=== PATIENT | female | born 1960 | race Caucasian/White ===

== ENCOUNTER 2022-03-08 06:55 | Inpatient (IN) | payer OTHER ==
[~2022-03-08] VITALS: Ht 149.9 cm; Wt 89.4 kg
--- NOTE | 2022-03-08 07:00 | NUR ---
Pt to bed 7 for evaluation.
--- NOTE | 2022-03-08 07:18 | NUR ---
at bedside with patient
--- NOTE | 2022-03-08 07:22 | NUR ---
Covid swab done and sent to lab.
--- NOTE | 2022-03-08 07:22 | NUR ---
Pt brougth in by pedro from dialysis center with complaint of low bp. patient is aox4. pain level is 0/10. pt is complaining of sob pt lung are clear and has 02 sat of 99 room air. pt glucose reading is 144.
--- NOTE | 2022-03-08 07:25 | NUR ---
Chest X-Ray being done at bedside.
[2022-03-08] MEDS ORDERED: ONDANSETRON HCL 4 MG/2 ML VIAL IVP ONE (07:30)
[2022-03-08 07:32] VITALS: BP_SYST 113
--- NOTE | 2022-03-08 07:42 | NUR ---
EKG performed at by Chacorta THOMPSON. Physician given copy of EKG for review.
[2022-03-08] MEDS ORDERED: ERGO800011 PO (07:47)
[2022-03-08] MEDS ORDERED: FOLI-43 PO (07:47)
[2022-03-08] MEDS ORDERED: ALPR0.25 PO (07:52)
[2022-03-08] MEDS ORDERED: NEPH PO (07:52)
[2022-03-08] MEDS ORDERED: METO-290 PO (07:52)
[2022-03-08] MEDS ORDERED: REN800 PO (07:52)
--- NOTE | 2022-03-08 07:52 | NUR ---
Medication reconciliation completed with information provided by patient. Any prior medication reconciliation on file was reviewed and corrected.
--- NOTE | 2022-03-08 08:10 | NUR ---
# 22 gauge angiocath placed to Right AC. Use of asceptic technique. Opsite placed over site. Blood return noted. Blood for lab drawn from site. Flushed with 10 cc of normal saline. No evidence of infiltration noted. Patient tolerated well.
--- NOTE | 2022-03-08 08:12 | NUR ---
# 16 FR Padilla catheter with use of sterile technique. No return noted. Bedside drainage bag placed below level of bladder. Pt tolerated procedure well.
--- NOTE | 2022-03-08 10:00 | NUR ---
Dr. Tai at bedside placing 20gIV using aseptic technique using guided ultrasound. Blood drawn.
[2022-03-08] MEDS ORDERED: VANCOMYCIN HCL 1,000 MG in NS 250 ML IV ONE (10:15)
[2022-03-08] MEDS ORDERED: PIPERACILLIN/TAZO 3.375 GM in NS 50 ML IV ONE (10:15)
[2022-03-08] MEDS ORDERED: VANCOMYCIN HCL 1000 MG/VIAL IV ONE (10:16)
[2022-03-08] MEDS ORDERED: PIPERACILLIN/TAZOBACTAM 3.375 GM/VIAL (ZOSYN) IV ONE (10:16)
--- NOTE | 2022-03-08 11:02 | NUR ---
Hemodialysis Patient Care Specialist is Cherise Holly
--- NOTE | 2022-03-08 11:22 | NUR ---
Admit bed requested Patient will be admitted to care of Dr. Valladares. Admitted to Tele unit. Diagnosis Sepsis & ESRD Inpatient Yes Observation No Orientation concerns or request close to nursing station No Covid Status Negative On vent or bipap No Isolation requirements No Needs a sitter No From Home Yes Requires Dialysis Yes. MWF Med Rec Completed Yes
[2022-03-08 11:26] LABS: ALANINE AMINOTRANSFERASE 54 U/L (12-78); ALBUMIN 1.8 g/dL (3.4-4.8); ASPARTATE AMINOTRANSFERASE 78 U/L (10-37); CREATININE 6.54 mg/dL (0.55-1.30); GLUCOSE 153 mg/dL (70-99); PHOSPHORUS 4.5 mg/dL (2.7-4.5); TOTAL BILIRUBIN 0.7 mg/dL (0.0-1.0); UREA NITROGEN, BLOOD 50 mg/dL (8-21)
--- NOTE | 2022-03-08 11:27 | NUR ---
Dr. Valladares called for admitting orders. Orders have been placed.
[2022-03-08 11:34] LABS: GFR AFRICAN AMERICAN 8 mL/min (>90)
[2022-03-08 11:39] LABS: ANION GAP 12 (5-15); CHLORIDE 109 mmol/L (98-107); POTASSIUM 4.5 mmol/L (3.5-5.1); SODIUM SERUM 144 mmol/L (136-145)
[2022-03-08] MEDS ORDERED: PIPERACILLIN/TAZO 3.375/DEX-IS 50 ML IV SCH (12:00)
[2022-03-08 12:40] VITALS: BP_SYST 92
--- NOTE | 2022-03-08 12:40 | NUR ---
Admission Note Received patient from ER with diagnosis of sepsis/ESRD. Initial Plan of Care discussed-patient verbalized understanding. Family at bedside. Oriented to room, call light, pain management and safety.
--- NOTE | 2022-03-08 12:44 | NUR ---
Patient will be admitted to care of DONNA Cooper. Admitted to unit. Will go to room . Belongings list completed. Complete and up to date summary report printed. SBAR report to be given at bedside with opportunity for questions.
--- NOTE | 2022-03-08 15:28 | NUR ---
Paged: Called Dr Valladares's exchange for pt c/o itching and spoke with Madeline.
--- NOTE | 2022-03-08 15:56 | NUR ---
ATTENDING MD DR PATEL WAS CALLED, RE: MED RELIEF FOR ITCHING. SPOKE TO RUBY.
--- NOTE | 2022-03-08 16:10 | NUR ---
New Order: Spoke with Dr Valladares regarding patient c/o itching.With orders give Benadryl 50mg ivp q 6hours for itching.
[2022-03-08] MEDS: PIPERACILLIN/TAZO 2.25G/DEX-IS 50 ML IV SCH ×2 (16:54→22:42)
[2022-03-08] MEDS: DIPHENHYDRAMINE INJ 50 MG/ML VIAL IVP PRN ×2 (17:03→22:41)
--- NOTE | 2022-03-08 17:45 | NUR ---
Note: Spoke with family, updates given.
--- NOTE | 2022-03-08 19:10 | NUR ---
OPENING NOTES: RECEIVED REPORT FROM OUTGOING NURSE. PT LAYING IN BED, FAMILY-CHILDREN AT BED SIDE. C/O ITCHING. FAMILY WORRIED MD HAS NOT SEEN THEIR MUM SINCE TODAY. VITALS STABLE, EXCEPT FOR ELEVATED TEMP. MD KEVIN MD PUT IN ORDER FOR 650MG TYLENOL FOR TEMP>100.4, TO FOR PICC LINE. PT IS A HARD STICK.
[2022-03-08 19:14] LABS: HEMOGLOBIN 7.1 g/dL (12.0-16.0)
--- NOTE | 2022-03-08 19:14 | NUR ---
Closing Notes Patient is laying in bed with eyes closed. Family is at bedside. No distress noted. Provided ice chips. Safety and fall precautions in place. Call light within reach. All needs met. Will hand off care to night cleaner RN.
[2022-03-08 20:37] LABS: HEMATOCRIT 22.4 % (36-48); MEAN CORPUSCULAR HEMOGLOBIN 30 pg (27-31); MEAN CORPUSCULAR HGB CONC 32 % (32-36); MEAN CORPUSCULAR VOLUME 94 fL (79.0-98.0); PLATELET COUNT (AUTO) 82 K/uL (130-430); RED BLOOD CELL COUNT(AUTO) 2.38 MIL/uL (4.2-6.2); RED CELL DISTRIBUTION WIDTH 20.2 % (9.0-15.0); WHITE BLOOD COUNT (AUTO) 8.4 K/uL (4.8-10.8)
[2022-03-08 21:22] LABS: INR 1.3 (0.8-1.2); PROTHROMBIN TIME 13.3 SECS (9.5-12.5)
[2022-03-08 21:46] LABS: BAND % (MANUAL) 5 % (0-6); BASOPHILS % (MANUAL) 0 % (0-2); EOSINOPHILS % (MANUAL) 40 % (0-7); LYMPHOCYTES % (MANUAL) 12 % (20-46); MONOCYTES % (MANUAL) 7 % (0-11)
[2022-03-08] MEDS: ACETAMINOPHEN 325 MG TABLET PO PRN (22:40)
[2022-03-09] VITALS (7 sets, daily range): BP systolic 110–126
--- NOTE | 2022-03-09 05:38 | NUR ---
BLOOD DRAW: ATTEMPTS TO DRAW BLOOD WAS NOT SUCCESSFUL. PT HAS SIGNED CONSENT TO START PICC LINE IN CHART.
[2022-03-09] MEDS: PIPERACILLIN/TAZO 2.25G/DEX-IS 50 ML IV SCH ×2 (06:49→13:33)
--- NOTE | 2022-03-09 07:39 | NUR ---
end of shift report to incoming nurse. pt asleep in bed. no signs of distress or discomfort. IV running with zosyn.
--- NOTE | 2022-03-09 11:57 | NUR ---
NOTIFIED ON CONSULT ORDERING PHY: REASON FOR CONSULT: SEPSIS DIALED: [phone] SPOKE TO: OLIVIA
[2022-03-09] MEDS ORDERED: HYDROCORTISONE 2.5%, 30 GM TOPICAL CREAM TP PRN (17:30)
[2022-03-09] MEDS ORDERED: *CUBICIN 6 MG/KG Q48H/PHARMACY XX PRN (17:30)
[2022-03-09] MEDS: CEFEPIME 1 GM in D5W 50 ML IV SCH (18:50)
--- NOTE | 2022-03-09 18:59 | NUR ---
station worker stated patient is not candidate for picc line and needs central line, notified primary MD and order for central line consult with dr Bhatti and to D/C picc line order
[2022-03-09] MEDS: DAPTOmycin 600 MG in NS 50 ML IV SCH (21:59)
[2022-03-09] MEDS: MIDODRINE HCL 5 MG TABLET (PROAMATINE) PO SCH (22:00)
[2022-03-09] MEDS: HYDROCORTISONE SOD SUCC 100 MG/2 ML VIAL IVP SCH (22:01)
[2022-03-09] MEDS: EMOLLIENT COMBINATION NO.73 78 GM CREAM..G. TP SCH (22:02)
[2022-03-10 00:26] VITALS: BP_SYST 135
--- NOTE | 2022-03-10 04:21 | NUR ---
CONSULTATION PAGED REASON FOR CONSULTATION: Central Line Placement WAS CONSULT CALLED? Y PERSON WHO WAS NOTIFIED: Dania CONSULTING PHYSICIAN: Dr. Bhatti REQUESTING PHYSICIAN:Dr. Gore
[2022-03-10] MEDS: HYDROCORTISONE SOD SUCC 100 MG/2 ML VIAL IVP SCH ×3 (05:55→23:36)
[2022-03-10 06:38] LABS: BASOPHILS # (AUTO) 0.1 K/uL (0.0-0.2); BASOPHILS % (AUTO) 1.1 % (0.0-2.0); EOSINOPHILS % (AUTO) 35.2 % (0.0-4.0); LYMPHOCYTES # (AUTO) 0.8 K/uL (1.0-5.5); LYMPHOCYTES % (AUTO) 13.8 % (20.5-51.5); MEAN CORPUSCULAR HEMOGLOBIN 30 pg (27-31); MEAN CORPUSCULAR HGB CONC 32 % (32-36); MEAN CORPUSCULAR VOLUME 94 fL (79.0-98.0); MONOCYTES # (AUTO) 0.3 K/uL (0.0-1.0); MONOCYTES % (AUTO) 5.6 % (1.7-9.3); NEUTROPHILS # (AUTO) 2.5 K/uL (1.8-7.7); NEUTROPHILS % (AUTO) 44.3 % (40.0-70.0); PLATELET COUNT (AUTO) 72 K/uL (130-430); RED BLOOD CELL COUNT(AUTO) 2.11 MIL/uL (4.2-6.2); RED CELL DISTRIBUTION WIDTH 20.1 % (9.0-15.0); WHITE BLOOD COUNT (AUTO) 5.6 K/uL (4.8-10.8)
[2022-03-10 08:00] VITALS: BP_SYST 103
[2022-03-10 08:50] LABS: ALBUMIN 1.6 g/dL (3.4-4.8); TOTAL BILIRUBIN 0.9 mg/dL (0.0-1.0); VANCOMYCIN,RANDOM 30.1 ug/mL
[2022-03-10 08:52] LABS: HEMATOCRIT 19.8 % (36-48); HEMOGLOBIN 6.4 g/dL (12.0-16.0)
[2022-03-10 09:13] LABS: CREATININE 8.74 mg/dL (0.55-1.30); POTASSIUM 5.9 mmol/L (3.5-5.1)
[2022-03-10] MEDS ORDERED: SODIUM POLYSTYRENE SULFONATE 15 GM/60 ML UDBTL PO ONE (09:30)
[2022-03-10] MEDS: MIDODRINE HCL 5 MG TABLET (PROAMATINE) PO SCH ×3 (09:34→23:36)
[2022-03-10] MEDS: EMOLLIENT COMBINATION NO.73 78 GM CREAM..G. TP SCH ×2 (09:34→23:28)
[2022-03-10] MEDS ORDERED: HEPARIN SODIUM,PORCINE 5,000 UNITS/ML VIAL MC ONE (11:00)
[2022-03-10] MEDS: MUPIROCIN 2% TOPICAL OINTMENT 22 GM NS SCH ×2 (11:35→23:27)
[2022-03-10 12:22] VITALS: BP_SYST 130
--- NOTE | 2022-03-10 13:13 | NUR ---
Dietitian Recommendations * Renal diet w/ Nepro BID. * Supplement provides an additional 840 kcals/day and 38 g protein/day. Please refer to Nutrition Assessment for details. Signed: 03/10/22 at 1314 by Sada CARRILLO <Co-Signature Required> Co-Signed: 03/10/22 at [address] Addendum: 03/10/22 at 1315 by Sada CARRILLO Amended: Links added.
[2022-03-10] MEDS: DIPHENHYDRAMINE INJ 50 MG/ML VIAL IVP PRN (15:22)
[2022-03-10 16:30] VITALS: BP_SYST 139
[2022-03-10] MEDS ORDERED: EPOETIN ALFA 3,000 UNITS/ML VIAL SUBCUT SCH (17:00)
[2022-03-10] MEDS ORDERED: HEPARIN SODIUM,PORCINE 5,000 UNITS/ML VIAL IVP ONE (18:15)
[2022-03-10 19:00] VITALS: BP_SYST 140
[2022-03-10 20:00] VITALS: BP_SYST 140
[2022-03-10] MEDS: CEFEPIME 1 GM in D5W 50 ML IV SCH (23:26)
[2022-03-11] VITALS (16 sets, daily range): BP systolic 131–188
[2022-03-11 07:26] LABS: ALBUMIN 1.7 g/dL (3.4-4.8); CREATININE 6.97 mg/dL (0.55-1.30); POTASSIUM 4.8 mmol/L (3.5-5.1); TOTAL BILIRUBIN 0.7 mg/dL (0.0-1.0)
[2022-03-11 08:21] LABS: CALCIUM 6.6 mg/dL (8.4-11.0)
[2022-03-11 08:23] LABS: EOSINOPHILS # (AUTO) 0.7 K/uL (0.0-0.4); EOSINOPHILS % (AUTO) 18.8 % (0.0-4.0); LYMPHOCYTES # (AUTO) 0.6 K/uL (1.0-5.5); LYMPHOCYTES % (AUTO) 14.3 % (20.5-51.5); MEAN CORPUSCULAR HEMOGLOBIN 30 pg (27-31); MEAN CORPUSCULAR HGB CONC 32 % (32-36); MEAN CORPUSCULAR VOLUME 93 fL (79.0-98.0); MONOCYTES # (AUTO) 0.4 K/uL (0.0-1.0); MONOCYTES % (AUTO) 10.1 % (1.7-9.3); RED CELL DISTRIBUTION WIDTH 19.1 % (9.0-15.0)
[2022-03-11] MEDS: HYDROCORTISONE SOD SUCC 100 MG/2 ML VIAL IVP SCH ×3 (08:40→21:58)
[2022-03-11] MEDS: EMOLLIENT COMBINATION NO.73 78 GM CREAM..G. TP SCH ×2 (08:41→22:00)
[2022-03-11] MEDS: MIDODRINE HCL 5 MG TABLET (PROAMATINE) PO SCH ×3 (08:41→21:00)
[2022-03-11] MEDS: MUPIROCIN 2% TOPICAL OINTMENT 22 GM NS SCH ×2 (08:42→21:59)
--- NOTE | 2022-03-11 09:30 | NUR ---
SPOKE WITH DR VAIL AND HE STATED PATIENT LEFT ARM SHUNT WILL BE ASSESSED VIA ULTRASOUND TO DETERMINE IF IT ABLE TO BE USED AND THE [place] CATH CAN BE REMOVED SINCE DR POWER VOICED THAT SOURCE OF INFECTION MIGHT BE THE CONCETTA CATHER. DIALYSIS SCHEDULED FOR TOMORROW. DR VAIL AT BEDSIDE AND SPOKE WITH FAMILY.
[2022-03-11] MEDS ORDERED: ONDANSETRON HCL 4 MG/2 ML VIAL IVP PRN (10:00)
--- NOTE | 2022-03-11 10:31 | NUR ---
CONSULTATION PAGED/CALLED Reason for Consultation: [] HYPOTENSION Person Who was Notified: [] VAMSI Consulting Physician: [] DR PEÑA Fuel Yard Operator Specialty: [] PULMO Ordering Physician: [] DR PATEL
[2022-03-11 10:32] LABS: RED BLOOD CELL COUNT(AUTO) 1.85 MIL/uL (4.2-6.2)
[2022-03-11 10:34] LABS: HEMATOCRIT 17.2 % (36-48); HEMOGLOBIN 5.6 g/dL (12.0-16.0); PLATELET COUNT (AUTO) 49 K/uL (130-430)
--- NOTE | 2022-03-11 10:45 | NUR ---
received report from [facility] DONNA Moore using SBAR method, patient is awake lying on bed, no signs of acute distress noted at this time. patient vital signs heart rate 87, respiratory rate 19, blood pressure 157/97, temperature 98.3, bed locked at lowest position, fall and safety precaution in place, will continue to monitor.
--- NOTE | 2022-03-11 10:48 | NUR ---
CONSULTATION PAGED REASON FOR CONSULTATION:GI BLEED WAS CONSULT CALED?Y PERSON WHO WAS NOTIFIED:ISMAEL CONSULTING PHYSICIAN:PHYLLIS HURST ([employer] PSYCHOLOGIST) ANALYTICS MANAGER SPECIALTY:GI ANALYTICS MANAGER PHONE NUMBER:[phone] REQUESTING PHYSICIAN:DANIAL LAIRD
--- NOTE | 2022-03-11 10:54 | NUR ---
CONSULTATION PAGED SON FOR CONSULTATION:LOW H/H 5.5/17.5 PLATELET 49 WAS CONSULT CALED?Y PERSON WHO WAS NOTIFIED:JAN CONSULTING PHYSICIAN:GURWINDER BHATT SET STAFF FITTER SPECIALTY:INCOLOFY/HEMATOLOGY SET STAFF FITTER PHONE NUMBER:[phone] REQUESTING PHYSICIAN:DANIAL LAIRD
--- NOTE | 2022-03-11 11:00 | NUR ---
CONSULTATION PAGED/CALLED Reason for Consultation: [] ADRENAL INSUFFICIENCY Person Who was Notified: [] DR ALVAREZ GOMEZ SAYED Consulting Physician: [] DR ALVAREZ GOMEZ SAYED Collection Systems Administrator Specialty: [] ENDOCRINE Ordering Physician: [] DR PATEL
--- NOTE | 2022-03-11 11:10 | NUR ---
CONSULTATION PAGED/CALLED Reason for Consultation: [] ANEMIA Person Who was Notified: [] KIKI Consulting Physician: [] DR NICHOLE Forensic Science Examiner Specialty: [] GI Ordering Physician: [] DR PATEL
[2022-03-11] MEDS ORDERED: PANTOPRAZOLE SODIUM 40 MG/VIAL (PROTONIX) IVP ONE (11:15)
--- NOTE | 2022-03-11 11:45 | NUR ---
PATIENT TRANSFERRED TO ICU, GAVE REPORT TO REINA THE RN IN ICU AT BEDSIDE, TRANSFERRED IN BED, 1 UNIT PRBC ORDERED AND BLOOD BANK FORM AND TAKEN TO LAB ALREADY BUT ENDORSED ADMINISTRATION OF PRBC BECAUSE IT IS NOT READY YET, FAMILY AT BEDSIDE AND TRANSFERRED WITH PATIENT TO THE ICU, ALL BELONGINGS SENT WITH THE PATIENT, PATIENT TOLERATED WELL AND VOICED UNDERSTANDING OF MEDICAL REASONING FOR TRANSFER.
[2022-03-11 11:56] LABS: HEMATOCRIT 18.1 % (36-48); HEMOGLOBIN 5.8 g/dL (12.0-16.0)
[2022-03-11 12:13] LABS: INR 1.2 (0.8-1.2); PROTHROMBIN TIME 12.7 SECS (9.5-12.5)
[2022-03-11 12:16] LABS: TOTAL IRON BIND. CAPACITY 98 ug/dL (250-450)
--- NOTE | 2022-03-11 13:17 | NUR ---
patient daughter and is at the bedside, answered questions and concerns.
--- NOTE | 2022-03-11 13:57 | NUR ---
RN NOTES DR. LANGFORD CALLED FOR CONSULT. RE: HIGH BP
[2022-03-11] MEDS: hydrALAZINE HCL 20 MG/ML VIAL IVP PRN ×2 (14:47→23:10)
[2022-03-11 15:28] LABS: BASOPHILS % (AUTO) 0.2 % (0.0-2.0); NEUTROPHILS # (AUTO) 2.3 K/uL (1.8-7.7); NEUTROPHILS % (AUTO) 56.6 % (40.0-70.0)
--- NOTE | 2022-03-11 17:00 | NUR ---
Dr. Arboleda is at the bedside assessing the patient, talked to the family.
--- NOTE | 2022-03-11 17:22 | NUR ---
bedside care rendered, change bed linen.do oral and perineal care.
[2022-03-11] MEDS: CEFEPIME 1 GM in D5W 50 ML IV SCH (18:02)
[2022-03-11] MEDS ORDERED: FOLIC ACID 1 MG TABLET PO ONE (18:45)
--- NOTE | 2022-03-11 19:15 | NUR ---
Opening notes Received report from endorsing morning shift RN for continuity of care. Patient is lying in bed alert and oriented in no signs of distress. Patient's vital signs blood pressure 173/74, heart rate 94, respirations 23, and SPO2 97% in room air. Padilla catheter is in place draining to gravity. Bed is locked and in lowest position, fall and safety precautions is in place.
[2022-03-11 20:34] LABS: HEMATOCRIT 17.4 % (36-48); HEMOGLOBIN 5.6 g/dL (12.0-16.0)
--- NOTE | 2022-03-11 20:54 | NUR ---
DR. JORGE LEWIS PAGED AT THIS TIME REGARDING CRITICAL RESULTS. SPOKE WITH CIPRIANO AT THE EXCHANGE.
--- NOTE | 2022-03-11 21:26 | NUR ---
DR. JOÃO LEWIS PAGED AT THIS TIME REGARDING CRITICAL LABS. SPOKE WITH IVAN AT THE EXCHANGE.
--- NOTE | 2022-03-11 21:32 | NUR ---
Received a called back from Dr. Hsu regarding critical value; Hgb 5.6 and Hct 7.4 .Gave verbal report. New order given; give 2 units of blood. Blood consent is in the chart. Type and cross is done.
[2022-03-11] MEDS: PANTOPRAZOLE SODIUM 40 MG/VIAL (PROTONIX) IVP SCH (21:58)
[2022-03-11] MEDS: DAPTOmycin 600 MG in NS 50 ML IV SCH (21:59)
[2022-03-11] MEDS: DIPHENHYDRAMINE INJ 50 MG/ML VIAL IVP PRN (23:09)
[2022-03-12] VITALS (25 sets, daily range): BP systolic 138–204
--- NOTE | 2022-03-12 03:40 | NUR ---
Blood transfusion First unit of blood transfusion done, started at 0047. No reaction throughout the blood transfusion. Type and cross is done. Blood consent is done and in the chart.
[2022-03-12] MEDS: HYDROCORTISONE SOD SUCC 100 MG/2 ML VIAL IVP SCH ×3 (05:59→21:17)
[2022-03-12] MEDS: hydrALAZINE HCL 20 MG/ML VIAL IVP PRN (06:03)
[2022-03-12 06:43] LABS: BASOPHILS # (AUTO) 0.1 K/uL (0.0-0.2); BASOPHILS % (AUTO) 2.4 % (0.0-2.0); EOSINOPHILS # (AUTO) 0.3 K/uL (0.0-0.4); EOSINOPHILS % (AUTO) 9.7 % (0.0-4.0); HEMATOCRIT 22.2 % (36-48); HEMOGLOBIN 7.2 g/dL (12.0-16.0); LYMPHOCYTES # (AUTO) 0.6 K/uL (1.0-5.5); LYMPHOCYTES % (AUTO) 18.4 % (20.5-51.5); MEAN CORPUSCULAR HEMOGLOBIN 30 pg (27-31); MEAN CORPUSCULAR HGB CONC 33 % (32-36); MEAN CORPUSCULAR VOLUME 92 fL (79.0-98.0); MONOCYTES # (AUTO) 0.3 K/uL (0.0-1.0); MONOCYTES % (AUTO) 10.4 % (1.7-9.3); NEUTROPHILS # (AUTO) 1.9 K/uL (1.8-7.7); NEUTROPHILS % (AUTO) 59.1 % (40.0-70.0); PLATELET COUNT (AUTO) 50 K/uL (130-430); RED BLOOD CELL COUNT(AUTO) 2.42 MIL/uL (4.2-6.2); WHITE BLOOD COUNT (AUTO) 3.2 K/uL (4.8-10.8)
[2022-03-12 07:06] LABS: FOLATE (FOLIC ACID) >20.0 ng/mL (>3.0)
--- NOTE | 2022-03-12 07:15 | NUR ---
received report from endorsing cemetery keeper RN for continuity of care, patient is awake lying on bed, blood transfusion is infusing , checked patient vital heart rate 107, respiratory rate 20, oxygen saturation 97, blood pressure 184/87 and temperature 97.3. blue catheter in place draining to gravity 50 ml, yellow urine in color, bed locked at lowest position, fall and safety precaution in place, will continue to monitor.
--- NOTE | 2022-03-12 07:40 | NUR ---
Dr. Marie is assessing the patient, patient family is at the bedside
[2022-03-12] MEDS: ACETAMINOPHEN 325 MG TABLET PO PRN (07:48)
[2022-03-12 07:49] LABS: POTASSIUM 4.9 mmol/L (3.5-5.1); TOTAL BILIRUBIN 0.7 mg/dL (0.0-1.0)
[2022-03-12] MEDS ORDERED: IPRATROPIUM/ALBUTEROL SULFATE 3 ML AMPUL.NEB (DUONEB) INH PRN ×2 (08:00→13:00)
[2022-03-12 08:06] LABS: INR 1.2 (0.8-1.2); PROTHROMBIN TIME 12.8 SECS (9.5-12.5)
[2022-03-12 08:23] LABS: ERYTHROCYTE SEDIMENTATION RATE 8 MM/HR (0-20)
[2022-03-12 08:52] LABS: CALCIUM 6.8 mg/dL (8.4-11.0)
[2022-03-12 08:54] LABS: CREATININE 8.01 mg/dL (0.55-1.30)
[2022-03-12] MEDS: calcitrioL 0.25 MCG CAPSULE PO SCH (09:59)
[2022-03-12] MEDS: FOLIC ACID 1 MG TABLET PO SCH (09:59)
[2022-03-12] MEDS ORDERED: METOPROLOL TARTRATE 25 MG TABLET PO ONE (10:00)
[2022-03-12] MEDS: PANTOPRAZOLE SODIUM 40 MG/VIAL (PROTONIX) IVP SCH ×2 (10:00→20:36)
[2022-03-12] MEDS: EMOLLIENT COMBINATION NO.73 78 GM CREAM..G. TP SCH ×2 (13:17→20:40)
[2022-03-12] MEDS: MUPIROCIN 2% TOPICAL OINTMENT 22 GM NS SCH ×2 (13:17→21:00)
[2022-03-12] MEDS: CEFEPIME 1 GM in D5W 50 ML IV SCH (17:40)
[2022-03-12] MEDS: EPOETIN ALFA-EPBX 10,000 UNITS/ML VIAL SUBCUT SCH (17:41)
--- NOTE | 2022-03-12 19:15 | NUR ---
Opening notes Received report from endorsing morning shift RN Isabel for continuity of care. Patient is lying in bed in no signs of distress with family member at the bedside. Patient's vital signs blood pressure 182/68, heart rate 96, respirations 28, SPO2 95% on room air. Patient is going to be NPO at midnight for abdominal ultrasound in the morning per morning RN. Padilla catheter is in place draining to gravity. Bed is locked and in lowest position, fall and safety precautions is in place.
[2022-03-12 19:17] LABS: HEMATOCRIT 26.3 % (36-48); HEMOGLOBIN 8.8 g/dL (12.0-16.0)
[2022-03-12] MEDS: METOPROLOL TARTRATE 25 MG TABLET PO SCH (20:37)
[2022-03-12] MEDS: INSULIN LISPRO SLIDING SCALE 100 UNITS/ML VIAL (humaLOG) SUBCUT PRN (21:15)
[2022-03-13] VITALS (19 sets, daily range): BP systolic 138–188
[2022-03-13] MEDS: HYDROCORTISONE SOD SUCC 100 MG/2 ML VIAL IVP SCH (06:10)
[2022-03-13] MEDS: INSULIN LISPRO SLIDING SCALE 100 UNITS/ML VIAL (humaLOG) SUBCUT PRN ×3 (06:48→17:26)
[2022-03-13 07:03] LABS: HEMATOCRIT 23.2 % (36-48); HEMOGLOBIN 7.8 g/dL (12.0-16.0); MEAN CORPUSCULAR HEMOGLOBIN 30 pg (27-31); MEAN CORPUSCULAR HGB CONC 34 % (32-36); MEAN CORPUSCULAR VOLUME 88 fL (79.0-98.0); RED BLOOD CELL COUNT(AUTO) 2.62 MIL/uL (4.2-6.2); RED CELL DISTRIBUTION WIDTH 17.8 % (9.0-15.0); WHITE BLOOD COUNT (AUTO) 3.1 K/uL (4.8-10.8)
[2022-03-13 07:15] LABS: ALBUMIN 2.1 g/dL (3.4-4.8); CALCIUM 7.4 mg/dL (8.4-11.0); CREATININE 6.01 mg/dL (0.55-1.30); POTASSIUM 4.1 mmol/L (3.5-5.1); TOTAL BILIRUBIN 0.8 mg/dL (0.0-1.0)
[2022-03-13] MEDS: hydrALAZINE HCL 20 MG/ML VIAL IVP PRN ×2 (07:29→15:33)
--- NOTE | 2022-03-13 07:34 | NUR ---
Initial Bedside shift report received from night RN for continuity of care.
[2022-03-13 08:06] LABS: PLATELET COUNT (AUTO) 34 K/uL (130-430)
[2022-03-13] MEDS: FOLIC ACID 1 MG TABLET PO SCH (09:17)
[2022-03-13] MEDS: PANTOPRAZOLE SODIUM 40 MG/VIAL (PROTONIX) IVP SCH ×2 (09:17→21:06)
[2022-03-13] MEDS: calcitrioL 0.25 MCG CAPSULE PO SCH (09:17)
[2022-03-13] MEDS: METOPROLOL TARTRATE 25 MG TABLET PO SCH (09:18)
[2022-03-13] MEDS: MUPIROCIN 2% TOPICAL OINTMENT 22 GM NS SCH ×2 (09:21→21:07)
[2022-03-13] MEDS: EMOLLIENT COMBINATION NO.73 78 GM CREAM..G. TP SCH ×2 (09:21→21:08)
[2022-03-13 10:56] LABS: BAND % (MANUAL) 3 % (0-6); BASOPHILS % (MANUAL) 0 % (0-2); EOSINOPHILS % (MANUAL) 2 % (0-7); LYMPHOCYTES % (MANUAL) 20 % (20-46); MONOCYTES % (MANUAL) 5 % (0-11)
[2022-03-13] MEDS: methylPREDNISolone SOD SUCC/PF 62.5 MG/ML VIAL IVP SCH ×2 (13:10→17:32)
--- NOTE | 2022-03-13 14:15 | NUR ---
Dr. Curiel rounded and orders left.
[2022-03-13] MEDS ORDERED: INSULIN GLARGINE 100 UNITS/ML 10 ML VIAL SUBCUT ONE (15:00)
--- NOTE | 2022-03-13 16:50 | NUR ---
Dr. Bhatti rounded and said he may take the patient to surgery on tuesday and would make up his mind on the procedure then. No orders left. He spoke to the patient and family at bedside about options.
[2022-03-13] MEDS: CEFEPIME 1 GM in D5W 50 ML IV SCH (17:23)
--- NOTE | 2022-03-13 18:15 | NUR ---
Transfer Pt transferred to [facility] rm 120A via bed. Pt A&O x3, VSs are WNR, afebrile; BP 178/87; No s&s of distress noted while transferring. Pt stated "no pain"
[2022-03-13] MEDS: DAPTOmycin 600 MG in NS 50 ML IV SCH (18:42)
--- NOTE | 2022-03-13 19:21 | NUR ---
Endorsement End of shift report given to Sadie THOMPSON, MST, for continuity of care
[2022-03-13 20:31] LABS: HEMATOCRIT 25.1 % (36-48); HEMOGLOBIN 8.3 g/dL (12.0-16.0)
--- NOTE | 2022-03-13 20:43 | NUR ---
1999: BLOOD DRAWN FROM LT IJ, CALLED WICK AND BASE ASSEMBLER TO TRICOT KNITTING MACHINE OPERATOR SPECIMEN. BP ELEVATED PREVIOUS NURSE CALLED . DR PARKINSON CALLED BACK AND ORDERED [place] 25 MG BID. CHARGE NURSE PLACED THE ORDER. WILL GIVE TO PT ONCE THE ORDER CLEARED BY THE PHARMACIST. Addendum: 03/13/22 at 2137 by Sixty lawn sprinkler servicer 2134: GENERALIZED PEELING OF SKIN, DENIES PAIN. TRIPLE LUMEN IJ ALL PORTS PATENT. HIRAM AND F/C CARE DONE. PT NEEDS STAT LOCK. PALPABLE PULSES TO ALL EXTREMITIES, MOVES ALL EXTREMITIES. NO SKIN INJURY NOTED.
[2022-03-13] MEDS ORDERED: METOPROLOL SUCCINATE 25 MG TAB.SR.24H (TOPROL XL) PO ONE (20:45)
[2022-03-14] VITALS (7 sets, daily range): BP systolic 119–184
[2022-03-14] MEDS: methylPREDNISolone SOD SUCC/PF 62.5 MG/ML VIAL IVP SCH ×4 (00:54→18:24)
[2022-03-14] MEDS: hydrALAZINE HCL 20 MG/ML VIAL IVP PRN (00:57)
[2022-03-14] MEDS: INSULIN LISPRO SLIDING SCALE 100 UNITS/ML VIAL (humaLOG) SUBCUT PRN ×3 (07:59→17:40)
--- NOTE | 2022-03-14 08:00 | NUR ---
late entry 0800- pt stable res even and unlabored. vitals stable denies any pain or sob. safety/fall precautions in place.kept comfortable. 1000- central line left internal jugular line dressing changed using sterile techniques. pt tolerated well. notin acute distress. daughter at bed side. 1300- pt stable pt cleaned and repositioned. keppt comfortable
[2022-03-14 08:06] LABS: HEPATITIS A AB, IgM Negative (Negative); HEPATITIS B CORE AB, IgM Negative (Negative); HEPATITIS B SURFACE AG Negative (Negative)
[2022-03-14] MEDS: PANTOPRAZOLE SODIUM 40 MG/VIAL (PROTONIX) IVP SCH ×2 (08:40→20:25)
[2022-03-14] MEDS: calcitrioL 0.25 MCG CAPSULE PO SCH (08:40)
[2022-03-14] MEDS: FOLIC ACID 1 MG TABLET PO SCH (08:41)
[2022-03-14] MEDS: METOPROLOL TARTRATE 25 MG TABLET PO SCH ×2 (08:41→20:26)
[2022-03-14] MEDS: MUPIROCIN 2% TOPICAL OINTMENT 22 GM NS SCH ×2 (08:50→20:27)
[2022-03-14] MEDS: EMOLLIENT COMBINATION NO.73 78 GM CREAM..G. TP SCH ×2 (08:51→20:27)
[2022-03-14] MEDS: INSULIN GLARGINE 100 UNITS/ML 10 ML VIAL SUBCUT SCH (08:59)
--- NOTE | 2022-03-14 11:30 | NUR ---
blood draw supervisor machining unable to draw blood culture venous draw,informed dr de la cruz .dr de la cruz stated ok to draw from central line.
[2022-03-14 12:17] LABS: EOSINOPHILS % (AUTO) 0.2 % (0.0-4.0); HEMATOCRIT 24.5 % (36-48); LYMPHOCYTES # (AUTO) 0.8 K/uL (1.0-5.5); MEAN CORPUSCULAR HEMOGLOBIN 30 pg (27-31); MEAN CORPUSCULAR HGB CONC 33 % (32-36); MEAN CORPUSCULAR VOLUME 90 fL (79.0-98.0); MONOCYTES # (AUTO) 0.1 K/uL (0.0-1.0); MONOCYTES % (AUTO) 3.2 % (1.7-9.3); NEUTROPHILS # (AUTO) 2.9 K/uL (1.8-7.7); NEUTROPHILS % (AUTO) 74.6 % (40.0-70.0); RED BLOOD CELL COUNT(AUTO) 2.71 MIL/uL (4.2-6.2); RED CELL DISTRIBUTION WIDTH 18.1 % (9.0-15.0); WHITE BLOOD COUNT (AUTO) 3.9 K/uL (4.8-10.8)
[2022-03-14 13:02] LABS: PLATELET COUNT (AUTO) 31 K/uL (130-430)
[2022-03-14] MEDS: INSULIN Lispro 100 UNITS/ML VIAL (humaLOG) SUBCUT SCH ×2 (17:39→20:32)
[2022-03-14] MEDS: CEFEPIME 1 GM in D5W 50 ML IV SCH (18:24)
--- NOTE | 2022-03-14 19:30 | NUR ---
closing notes pt stable resting comfortably.denies any pain or sob. at bed side. not in acute distress.report given to night nurse
[2022-03-15] MEDS: methylPREDNISolone SOD SUCC/PF 62.5 MG/ML VIAL IVP SCH ×5 (00:08→23:34)
[2022-03-15 06:37] LABS: BASOPHILS % (AUTO) 0.5 % (0.0-2.0); EOSINOPHILS % (AUTO) 0.1 % (0.0-4.0); HEMATOCRIT 23.3 % (36-48); HEMOGLOBIN 7.7 g/dL (12.0-16.0); LYMPHOCYTES # (AUTO) 0.7 K/uL (1.0-5.5); LYMPHOCYTES % (AUTO) 15.2 % (20.5-51.5); MEAN CORPUSCULAR HEMOGLOBIN 30 pg (27-31); MEAN CORPUSCULAR HGB CONC 33 % (32-36); MEAN CORPUSCULAR VOLUME 90 fL (79.0-98.0); MONOCYTES # (AUTO) 0.2 K/uL (0.0-1.0); MONOCYTES % (AUTO) 5.3 % (1.7-9.3); NEUTROPHILS # (AUTO) 3.5 K/uL (1.8-7.7); NEUTROPHILS % (AUTO) 78.9 % (40.0-70.0); RED BLOOD CELL COUNT(AUTO) 2.59 MIL/uL (4.2-6.2); RED CELL DISTRIBUTION WIDTH 17.7 % (9.0-15.0); WHITE BLOOD COUNT (AUTO) 4.4 K/uL (4.8-10.8)
[2022-03-15 07:11] LABS: ALBUMIN 2.2 g/dL (3.4-4.8); CALCIUM 7.3 mg/dL (8.4-11.0); POTASSIUM 5.1 mmol/L (3.5-5.1); THYROID STIMULATING HORMONE 0.47 uIu/mL (0.36-3.74); TOTAL BILIRUBIN 0.6 mg/dL (0.0-1.0)
[2022-03-15 07:40] LABS: PLATELET COUNT (AUTO) 36 K/uL (130-430)
--- NOTE | 2022-03-15 08:00 | NUR ---
OPENING NOTES: PATIENT RESTING IN BED. BREATHING EVEN AND NON LABORED TO RA. DENIES ANY DISCOMFORT. BED LOCKED, ALARM ON AND IN LOWEST POSITION. FALL, SAFETY AND ASPIRATION MEASURES REINFORCED. CALL LIGHT WITHIN REACH.
[2022-03-15 08:06] LABS: ANTI NUCLEAR AB WITH REFLEX Negative (Negative)
[2022-03-15 08:34] LABS: CREATININE 7.99 mg/dL (0.55-1.30)
[2022-03-15] MEDS: PANTOPRAZOLE SODIUM 40 MG/VIAL (PROTONIX) IVP SCH ×2 (09:49→20:56)
[2022-03-15] MEDS: METOPROLOL TARTRATE 25 MG TABLET PO SCH ×2 (09:50→20:57)
[2022-03-15] MEDS: calcitrioL 0.25 MCG CAPSULE PO SCH (09:50)
[2022-03-15] MEDS: EMOLLIENT COMBINATION NO.73 78 GM CREAM..G. TP SCH ×2 (09:53→20:59)
[2022-03-15] MEDS: INSULIN GLARGINE 100 UNITS/ML 10 ML VIAL SUBCUT SCH (09:57)
[2022-03-15] MEDS: FOLIC ACID 1 MG TABLET PO SCH (09:58)
[2022-03-15 11:22] VITALS: BP_SYST 157
[2022-03-15] MEDS: INSULIN Lispro 100 UNITS/ML VIAL (humaLOG) SUBCUT SCH ×2 (12:00→16:22)
--- NOTE | 2022-03-15 12:00 | NUR ---
RN NOTES: PATIENT RESTING IN BED. ACCUCHECK DONE. INSULIN COVERAGE GIVEN. NO S/S OF ACUTE DISTRESS NOTED. CALL LIGHT WITHIN REACH.
[2022-03-15] MEDS: INSULIN LISPRO SLIDING SCALE 100 UNITS/ML VIAL (humaLOG) SUBCUT PRN ×3 (12:02→21:08)
--- NOTE | 2022-03-15 15:14 | NUR ---
Nutrition F/U Admitting Diagnosis ESRD, sepsis Reviewed Pertinent Medical/Surgical Hx Medical Record Patient Medical History Comment: Per EMR review, PMH includes ESRD on HD, HTN, HLD, DM, obesity and anemia.. SARS-CoV-2 Ag (Rapid) Negative 03/08. Subjective Information RD bedside visit deferred d/t high workload. Per physician notes, pt found to have pancytopenia secondary to bone marrow suppression induced by both infection and medications; pt is S/P L. 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 Per EMR review, Jake score 16 skin tear/ecchymosis to R. arm, generalized erythema, 3+ non-pitting edema to BLE and non-pitting edema to BUE; last BM x1 today; abd. is soft and non-distended w/ active bowel sounds; PO intake 63% x6 meal records. Current Diet Order/Nutrition Support Renal, Nepro BID x4 days Patient/Significant Other Unable To Verbalize Education Provided Not Indicated Pertinent Medications Humalog, Lantus, Lopressor, Solu-Medrol, Retacrit, Folic Acid, SSI, Protonix IV, Daptomycin, Pertinent Labs Na 148 H, BUN 107 H, Cr 7.99 H, BG 165 H, POC BG 297 H, AST 74 H, ALT 80 H, ALP 198 H, Alb 2.2 L Height (Feet) 4 feet Height (Inches) 11.00 inches Weight (Pounds) 220 pounds 03/11: 200#/90.9 kg questionable 20# wt loss in 1 day, possibly d/t fluid shifts a/w HD Weight (Calculated Kilograms) 99.684786 kilograms Patient Weight 99.79 kg Body Mass Index 44.43 kg/m2 %IBW 224 [place]/Adjusted Body Weight 98#/44.5 kg; AdjBW: 128#/58.3 kg Recent Weight Change unable to verify Weight Status Morbidly Obese Last BM Mar 10, 2022 Food Allergies unable to verify Usual Diet At Home Renal diet per nursing assessment Skin Integrity Comment: Jake score 11, dry flaky skin, generalized erythema, non-pitting edema BLE and BUE. Current % PO Poor (25-49%) (*ongoing) Estimated Energy Expenditure (kcals/day) 7262-6898 kcals/day (30-35 kcals/kg AdjBW d/t sepsis, obesity) (*ongoing) Estimated Protein Required (g/day) 76-88 g/day (1.3-1.5 g/kg AdjBW d/t sepsis, ESRD on HD) Estimated Fluid Required (l/day) Per law firm administrator d/t ESRD Problem/Etiology/Signs/Symptoms Increased nutritional needs R/T physiological demands AEB estimated nutritional requirements for sepsis. (*ongoing) Altered nutrition-related lab values R/T renal dysfunction AEB BUN 78 H, Cr 8.74 H, GFR 6 L and pt receiving HD. (*on-going) Predicted suboptimal oral intake R/T poor appetite AEB average PO intake of 28% x5 meals. (*improving, PO intake 63% x 6 meals) Expected Outcomes/Goals Monitor appetite and PO intake w/ goal of pt meeting more than 75% of estimated nutritional needs, labs trending WNL, normal GI function, skin integrity/wt maintenance. Dietitian Recommendations * Renal diet w/ Nepro BID. * Supplement provides an additional 840 kcals/day and 38 g protein/day. Follow Up Mod Risk: F/U in 3-5 days
--- NOTE | 2022-03-15 15:15 | NUR ---
Dietitian Recommendations * Renal diet w/ Nepro BID. * Supplement provides an additional 840 kcals/day and 38 g protein/day. Please refer to Nutrition F/U for details.
[2022-03-15 15:22] VITALS: BP_SYST 180
[2022-03-15 15:52] VITALS: BP_SYST 140
[2022-03-15] MEDS: EPOETIN ALFA-EPBX 10,000 UNITS/ML VIAL SUBCUT SCH (17:49)
[2022-03-15] MEDS: CEFEPIME 1 GM in D5W 50 ML IV SCH (17:50)
--- NOTE | 2022-03-15 18:45 | NUR ---
SPOKE TO DR. POWER (PRELIM BLOOD CULTURE): SPOKE TO DR. POWER AND REPORTED THE PRELIM BLOOD CULTURE RESULT (YEAST). PER DR. POWER, START MYCAMINE 100 MG IV DAILY.
[2022-03-15] MEDS: DAPTOmycin 600 MG in NS 50 ML IV SCH (19:10)
--- NOTE | 2022-03-15 19:25 | NUR ---
CLOSING NOTES: PATIENT RESTING IN BED. NO S/S OF ACUTE DISTRESS NOTED. FALL AND SAFETY MEASURES PROVIDED. CALL LIGHT WITHIN REACH. ENDORSED TO REFRACTORY MIXER RN.
--- NOTE | 2022-03-15 19:54 | NUR ---
Dr. Bhatti at bedside to insert HD catheter.
[2022-03-15] MEDS ORDERED: HEPARIN SODIUM,PORCINE 5,000 UNITS/ML VIAL ONE (19:56)
[2022-03-15 20:00] VITALS: BP_SYST 146
[2022-03-15] MEDS ORDERED: HEPARIN SODIUM,PORCINE 5,000 UNITS/ML VIAL IVP ONE (20:30)
[2022-03-15] MEDS: MICAFUNGIN SODIUM 100 MG in NS 100 ML IV SCH (20:56)
--- NOTE | 2022-03-15 21:22 | NUR ---
CXR at bedside.
[2022-03-16 00:22] VITALS: BP_SYST 135
--- NOTE | 2022-03-16 01:28 | NUR ---
Rounds Pt asleep, easily awakens, no s/s distress noted. L. IJ alec dressing C/D/I. Padilla catheter draining to gravity. Call light within reach. Bed low, locked, siderails up x4, alarm on. To monitor.
[2022-03-16] MEDS: methylPREDNISolone SOD SUCC/PF 62.5 MG/ML VIAL IVP SCH ×2 (06:05→12:20)
--- NOTE | 2022-03-16 06:54 | NUR ---
Closing notes Pt asleep, easily awakens, no s/s distress noted. VSS, afebrile. L. IJ Josafat cath with pigtail, dressing C/D/I with good blood return. Blood sugar checked 195, will administer insulin as scheduled. Call light within reach. Bed low, locked, siderails up x3, alarm on. Pt to have dialysis today. To endorse to AM nurse.
[2022-03-16] MEDS: INSULIN LISPRO SLIDING SCALE 100 UNITS/ML VIAL (humaLOG) SUBCUT PRN ×3 (07:05→16:25)
[2022-03-16] MEDS: INSULIN Lispro 100 UNITS/ML VIAL (humaLOG) SUBCUT SCH ×3 (07:06→16:21)
--- NOTE | 2022-03-16 07:58 | NUR ---
Opening notes: Patient eating breakfast. Head of the bed elevated. Denies any discomfort at this time. Bed locked, alarm on and in lowest position. Fall, safety and aspiration measures reinforced. Call light within reach.
[2022-03-16 08:00] VITALS: BP_SYST 148
[2022-03-16] MEDS: FOLIC ACID 1 MG TABLET PO SCH (08:39)
[2022-03-16] MEDS: calcitrioL 0.25 MCG CAPSULE PO SCH (08:39)
[2022-03-16] MEDS: EMOLLIENT COMBINATION NO.73 78 GM CREAM..G. TP SCH ×2 (08:40→21:37)
[2022-03-16] MEDS: INSULIN GLARGINE 100 UNITS/ML 10 ML VIAL SUBCUT SCH (08:49)
[2022-03-16] MEDS: PANTOPRAZOLE SODIUM 40 MG/VIAL (PROTONIX) IVP SCH ×2 (08:51→21:36)
[2022-03-16] MEDS: METOPROLOL TARTRATE 25 MG TABLET PO SCH ×2 (09:00→21:36)
--- NOTE | 2022-03-16 09:58 | NUR ---
Discharge Planning: [facility] faxed pt referral to [facility]#[phone]. [place] spoke to Lana P#[phone] made her aware pt wanted to keep same home health. Lana also made CHEVY aware pt has been doing dialysis with [facility], Lana requesting order for IV meds, she will arrange medication to be done during dialysis if possible. CHEVY made Lana aware to contact CM for any further needed. [place]Y made CM aware. Addendum: 03/16/22 at 1550 by Mirian BUCKNER [facility] faxed pt referral to [facility]#[phone] HH and IV meds order to Lana [facility]. Lana will arrange.
[2022-03-16 11:07] LABS: ANTI-SMOOTH MUSCLE AB 8 Units (0-19)
[2022-03-16 11:28] VITALS: BP_SYST 115
[2022-03-16] MEDS ORDERED: HEPARIN SODIUM, PORCINE 10,000 UNITS/ 10 ML VIAL MC PRN (11:30)
--- NOTE | 2022-03-16 11:31 | NUR ---
HEMODIALYSIS AT BEDSIDE: HEMODIALYSIS AT BED SIDE. PATIENT IN STABLE CONDITION. NO S/S OF ACUTE DISTRESS NOTED.
[2022-03-16 11:35] LABS: BASOPHILS % (AUTO) 0.4 % (0.0-2.0); EOSINOPHILS % (AUTO) 0.1 % (0.0-4.0); HEMATOCRIT 24.9 % (36-48); HEMOGLOBIN 8.2 g/dL (12.0-16.0); LYMPHOCYTES # (AUTO) 0.7 K/uL (1.0-5.5); LYMPHOCYTES % (AUTO) 10.8 % (20.5-51.5); MEAN CORPUSCULAR HEMOGLOBIN 30 pg (27-31); MEAN CORPUSCULAR HGB CONC 33 % (32-36); MEAN CORPUSCULAR VOLUME 90 fL (79.0-98.0); MONOCYTES # (AUTO) 0.2 K/uL (0.0-1.0); MONOCYTES % (AUTO) 3.5 % (1.7-9.3); NEUTROPHILS # (AUTO) 5.4 K/uL (1.8-7.7); NEUTROPHILS % (AUTO) 85.2 % (40.0-70.0); RED BLOOD CELL COUNT(AUTO) 2.76 MIL/uL (4.2-6.2); RED CELL DISTRIBUTION WIDTH 17.5 % (9.0-15.0); WHITE BLOOD COUNT (AUTO) 6.4 K/uL (4.8-10.8)
[2022-03-16 11:39] LABS: PLATELET COUNT (AUTO) 34 K/uL (130-430)
[2022-03-16] MEDS ORDERED: CHOLECALCIFEROL (VITAMIN D3) 2,000 UNIT TABLET PO ONE (12:00)
[2022-03-16] MEDS ORDERED: HEPARIN SODIUM,PORCINE 5,000 UNITS/ML VIAL MC PRN (12:15)
--- NOTE | 2022-03-16 14:00 | NUR ---
RN NOTES/ HD OUT: HD OUT 2.6 LITERS. STABLE VITAL SIGNS. NO S/S OF ACUTE DISTRESS NOTED.
[2022-03-16 15:30] VITALS: BP_SYST 147
[2022-03-16] MEDS: METHYLPREDNISOLONE SOD SUCC 40 MG/ML VIAL IVP SCH (18:02)
[2022-03-16] MEDS: CEFEPIME 1 GM in D5W 50 ML IV SCH (18:03)
--- NOTE | 2022-03-16 19:06 | NUR ---
Closing Notes: Patient resting in bed. No s/s of acute distress noted. Denies any discomfort at this time. Fall and safety measures provided. Call light within reach. Will continue monitor until endorse to assembler 1st shift RN.
--- NOTE | 2022-03-16 19:45 | NUR ---
OPENING NOTE PT IS SITTING IN BED WITH BEDSIDE. NO APPARENT DISTRESS NOTED AT THIS TIME. PT DENIES ANY PAIN AT HIS TIME. BED IS IN LOWEST POSITION WITH SAFETY PRECAUTIONS IN PLACE. CALL LIGHT IS WITHIN REACH AND PT IS REEDUCATED ON HOW TO USE IT
[2022-03-16 20:00] VITALS: BP_SYST 164
[2022-03-16] MEDS: MICAFUNGIN SODIUM 100 MG in NS 100 ML IV SCH (21:37)
[2022-03-17] MEDS: METHYLPREDNISOLONE SOD SUCC 40 MG/ML VIAL IVP SCH ×4 (00:13→16:17)
[2022-03-17 00:20] VITALS: BP_SYST 160
[2022-03-17] MEDS: INSULIN Lispro 100 UNITS/ML VIAL (humaLOG) SUBCUT SCH ×3 (06:04→16:10)
--- NOTE | 2022-03-17 06:56 | NUR ---
CLOSING NOTES PT IS LYING ON HER SIDE SLEEPING. NO APPARENT DISTRESS NOTED AT THIS TIME. BED IS IN LOWEST POSITION WITH FALL AND SAFETY PRECAUTIONS IN PLACE. CALL LIGHT IS WITHIN REACH
[2022-03-17 08:29] VITALS: BP_SYST 165
[2022-03-17] MEDS: PANTOPRAZOLE SODIUM 40 MG/VIAL (PROTONIX) IVP SCH (08:32)
[2022-03-17] MEDS: calcitrioL 0.25 MCG CAPSULE PO SCH (08:33)
[2022-03-17] MEDS: FOLIC ACID 1 MG TABLET PO SCH (08:34)
[2022-03-17] MEDS: METOPROLOL TARTRATE 25 MG TABLET PO SCH (08:34)
--- NOTE | 2022-03-17 08:39 | NUR ---
NOTES PATIENT AAOX 4. VITALS SIGNS STABLE. AFEBRILE. HAS LEFT I G CONCETTA CATH WITH PIGTAIL. ONE LUMEN FOR IV ANTIBIOTIC. BOTH ARMS DISCOLORED. LUNGS BILATERALLY DIMINISHED AT THE BASES. ABDOMEN SOFT AND NON DISTENDED. CALL LIGHTS WITHIN REACH. BED LOW POSITION, ALARMED AND LOCKED. WILL CONTINUE TO MONITOR. DAUGHTER AND AT THE BEDSIDE. REFUSED TO HAVE PAIN TABLET.
[2022-03-17] MEDS ORDERED: INSULIN GLARGINE 100 UNITS/ML 10 ML VIAL SUBCUT SCH (09:00)
[2022-03-17] MEDS ORDERED: CHOLECALCIFEROL (VITAMIN D3) 2,000 UNIT TABLET PO SCH (09:00)
--- NOTE | 2022-03-17 09:00 | NUR ---
DUE MEDS GIVEN. MADE COMFORTABLE.
--- NOTE | 2022-03-17 09:30 | NUR ---
CM: SPOKE WITH NANETTE FROM [facility], STATES SHE HAS FAXED PRESCRIPTION FOR MEDS TO [facility] TO FILL FOR HH IV INFUSION, WILL ALSO INFORM PT'S DAUGHTER ON POC.
[2022-03-17] MEDS: EMOLLIENT COMBINATION NO.73 78 GM CREAM..G. TP SCH (09:35)
[2022-03-17 10:25] LABS: BASOPHILS % (AUTO) 0.3 % (0.0-2.0); HEMATOCRIT 26.3 % (36-48); HEMOGLOBIN 8.8 g/dL (12.0-16.0); LYMPHOCYTES # (AUTO) 0.6 K/uL (1.0-5.5); MEAN CORPUSCULAR HEMOGLOBIN 30 pg (27-31); MEAN CORPUSCULAR HGB CONC 33 % (32-36); MEAN CORPUSCULAR VOLUME 89 fL (79.0-98.0); MONOCYTES # (AUTO) 0.2 K/uL (0.0-1.0); MONOCYTES % (AUTO) 5.3 % (1.7-9.3); NEUTROPHILS # (AUTO) 3.7 K/uL (1.8-7.7); NEUTROPHILS % (AUTO) 80.4 % (40.0-70.0); RED BLOOD CELL COUNT(AUTO) 2.95 MIL/uL (4.2-6.2); RED CELL DISTRIBUTION WIDTH 17.2 % (9.0-15.0); WHITE BLOOD COUNT (AUTO) 4.5 K/uL (4.8-10.8)
[2022-03-17 10:31] LABS: PLATELET COUNT (AUTO) 30 K/uL (130-430)
[2022-03-17 10:51] LABS: ALBUMIN 2.3 g/dL (3.4-4.8); CREATININE 6.31 mg/dL (0.55-1.30); POTASSIUM 5.6 mmol/L (3.5-5.1); TOTAL BILIRUBIN 0.9 mg/dL (0.0-1.0)
[2022-03-17 11:04] VITALS: BP_SYST 151
[2022-03-17 11:22] LABS: CALCIUM 7.4 mg/dL (8.4-11.0)
--- NOTE | 2022-03-17 11:56 | NUR ---
CALLED DR JOÃO Jolley REGARDING PLATELET 30. SPOKE TO JAN CHANNEL MARKETING COORDINATOR AND FAXED RESULT
--- NOTE | 2022-03-17 12:00 | NUR ---
DR BERGERON CALLED FOR PT ORDER ON DISCHARGE WITH HOME HEALTH.
--- NOTE | 2022-03-17 12:41 | NUR ---
DIALYSIS DONE AT THIS TIME. 2.6 LITERS OUTPUT FROM DIALYSIS. LATEST BS 123 MG/DL. NO COVERAGE GIVEN.
--- NOTE | 2022-03-17 16:01 | NUR ---
MIGUEL LOG TURNER INFORMED THAT PATIENT NEEDS DIALYSIS TOMORROW, PER DR VAIL NEPHROLOGY ORDER. AND CALLED DR BERGERON TO CANCELLED OR HOLD DISCHARGE FOR NOW.
[2022-03-17 16:06] VITALS: BP_SYST 156
[2022-03-17] MEDS: EPOETIN ALFA-EPBX 10,000 UNITS/ML VIAL SUBCUT SCH (16:11)
[2022-03-17] MEDS: DAPTOmycin 600 MG in NS 50 ML IV SCH (16:12)
--- NOTE | 2022-03-17 16:15 | NUR ---
DR BERGERON CALLED FOR VERIFICATION OF DISCHARGE SAID NO. NEEDS TO GO HOME WITH HOME HEALTH.
[2022-03-17] MEDS: CEFEPIME 1 GM in D5W 50 ML IV SCH (16:18)
--- NOTE | 2022-03-17 16:29 | NUR ---
SPOKE TO DR VAIL THAT DIALYSIS CAN BE OUTPATIENT. CLEARED TO GO HOME.
[2022-03-17 16:32] VITALS: BP_SYST 151
--- NOTE | 2022-03-17 16:37 | NUR ---
CM: [facility] ATTN NANETTE [phone]
--- NOTE | 2022-03-17 18:30 | NUR ---
DISCHARGE PATIENT AT THIS TIME. DISCHARGE INSTRUCTION GIVEN TO THE PATIENT. FOR DIALYSIS TOMORROW AT 1000AM ARRANGED BY [facility]. AND PERHAPS WILL BORING MACHINE OPERATOR VERTICAL MEDICATION OF DIFLUCAN 200 MG PO FOR TWO WEEKS. CONCETTA CATHETER WITH PIG TAIL. STILL IN PLACED. HAS A NEW DRESSING WAS PLACED BY DIALYSIS NURSE. INSTRUCTION ON MEDICATION GIVEN. AND SIGNED BY THE PATIENT.
--- NOTE | 2022-03-17 18:32 | NUR ---
CALLED Emily BASSETT REGARDING THE DIFLUCAN 200 MG PO DAILY FOR TWO WEEKS. SAID WILL SENT A E PRESCRIPTION TO [facility]. SO THAT THEY AUDIO OPERATOR TONITE OR TOMORROW.
[2022-03-17] MEDS ORDERED: FLUC200T PO (20:34)
== END 2022-03-17 18:30 | disposition home health service (06) | DRG 314 ==
LOC: SED 06:55 → STU 11:24 → SIC 03-11 11:27 → STU 03-13 20:15
PROVIDERS: ADMIT Internal Medicine Hospice and Palliative Medicine; ATTEND Internal Medicine Hospice and Palliative Medicine
PROC: 5A1D70Z Performance of Urinary Filtration, Intermittent, Less than 6 Hours Per Day (ICD-10-PCS; 2022-03-09)
PROC: 02H633Z Insertion of Infusion Device into Right Atrium, Percutaneous Approach (ICD-10-PCS; principal; 2022-03-10)
PROC: B548ZZA Ultrasonography of Superior Vena Cava, Guidance (ICD-10-PCS; 2022-03-10)
PROC: 30233N1 Transfusion of Nonautologous Red Blood Cells into Peripheral Vein, Percutaneous Approach (ICD-10-PCS; 2022-03-10)
PROC: 5A1D70Z Performance of Urinary Filtration, Intermittent, Less than 6 Hours Per Day (ICD-10-PCS; 2022-03-11)
PROC: 0JPT3XZ Removal of Tunneled Vascular Access Device from Trunk Subcutaneous Tissue and Fascia, Percutaneous Approach (ICD-10-PCS; 2022-03-12)
PROC: 02PAX3Z Removal of Infusion Device from Heart, External Approach (ICD-10-PCS; 2022-03-12)
PROC: 02HV33Z Insertion of Infusion Device into Superior Vena Cava, Percutaneous Approach (ICD-10-PCS; 2022-03-15)
PROC: 02PAX3Z Removal of Infusion Device from Heart, External Approach (ICD-10-PCS; 2022-03-15)
PROC: 5A1D70Z Performance of Urinary Filtration, Intermittent, Less than 6 Hours Per Day (ICD-10-PCS; 2022-03-15)
PROC: 5A1D70Z Performance of Urinary Filtration, Intermittent, Less than 6 Hours Per Day (ICD-10-PCS; 2022-03-16)
PROC: 5A1D70Z Performance of Urinary Filtration, Intermittent, Less than 6 Hours Per Day (ICD-10-PCS; 2022-03-17)
DX: T80.211A Bloodstream infection due to central venous catheter, initial encounter (principal); N18.6 End stage renal disease; R65.21 Severe sepsis with septic shock; G93.41 Metabolic encephalopathy; A41.1 Sepsis due to other specified staphylococcus; D61.818 Other pancytopenia; I50.30 Unspecified diastolic (congestive) heart failure; I13.2 Hypertensive heart and chronic kidney disease with heart failure and with stage 5 chronic kidney disease, or end stage renal disease; B49 Unspecified mycosis; E27.40 Unspecified adrenocortical insufficiency; L51.1 Stevens-Johnson syndrome; D62 Acute posthemorrhagic anemia; I95.3 Hypotension of hemodialysis; E11.22 Type 2 diabetes mellitus with diabetic chronic kidney disease; E11.65 Type 2 diabetes mellitus with hyperglycemia; E83.51 Hypocalcemia; D72.10 Eosinophilia, unspecified; Y84.8 Other medical procedures as the cause of abnormal reaction of the patient, or of later complication, without mention of misadventure at the time of the procedure; E78.5 Hyperlipidemia, unspecified; R21 Rash and other nonspecific skin eruption; J45.909 Unspecified asthma, uncomplicated; T50.995A Adverse effect of other drugs, medicaments and biological substances, initial encounter; D63.8 Anemia in other chronic diseases classified elsewhere; E66.01 Morbid (severe) obesity due to excess calories; K76.0 Fatty (change of) liver, not elsewhere classified; Z20.822 Contact with and (suspected) exposure to COVID-19; R16.1 Splenomegaly, not elsewhere classified; K57.90 Diverticulosis of intestine, part unspecified, without perforation or abscess without bleeding; Z90.710 Acquired absence of both cervix and uterus; Z90.49 Acquired absence of other specified parts of digestive tract; Z79.4 Long term (current) use of insulin; Z79.899 Other long term (current) drug therapy; Z99.2 Dependence on renal dialysis; Y92.89 Other specified places as the place of occurrence of the external cause; Z68.39 Body mass index [BMI] 39.0-39.9, adult; Z88.2 Allergy status to sulfonamides; Z88.1 Allergy status to other antibiotic agents
CPT/HCPCS: 36415; 36430; 71045; 76700-TC; 80053; 80074; 80202; 82272; 82306; 82533; 82607; 82728; 82746; 82962; 83010; 83516; 83540; 83550; 83605; 83735; 83880; 84100; 84443; 84484; 85007; 85018; 85025; 85027; 85384; 85610-TC; 85651-TC; 85730-TC; 86038; 86886; 86900; 86901; 86920; 87040; 87081; 93306; 93970; 93971; 94640; 94760; 96365; 96368; 96375; 99291; C9113; G0378; J0360; J0692; J0878; J0885; J1030; J1200; J1644; J1720; J1815; J2248; J2405; J2543; J2930; J3370; J7060; P9021; Q5106

== ENCOUNTER 2022-04-22 13:42 | Inpatient (IN) | payer OTHER ==
[~2022-04-22] VITALS: Ht 149.9 cm; Wt 80.7 kg
[~2022-04-22 13:42] MED LIST: ALPR0.25 PO; ERGO800011 PO; FLUC200T PO; FOLI-43 PO; METO-290 PO; NEPH PO; REN800 PO
[2022-04-22 13:55] VITALS: BP_SYST 164
[2022-04-22 15:12] LABS: BASOPHILS # (AUTO) 0.1 K/uL (0.0-0.2); BASOPHILS % (AUTO) 1.4 % (0.0-2.0); EOSINOPHILS % (AUTO) 0.6 % (0.0-4.0); HEMATOCRIT 27.5 % (36-48); LYMPHOCYTES # (AUTO) 0.7 K/uL (1.0-5.5); LYMPHOCYTES % (AUTO) 17.6 % (20.5-51.5); MEAN CORPUSCULAR HEMOGLOBIN 30 pg (27-31); MEAN CORPUSCULAR HGB CONC 33 % (32-36); MEAN CORPUSCULAR VOLUME 93 fL (79.0-98.0); MONOCYTES # (AUTO) 0.4 K/uL (0.0-1.0); MONOCYTES % (AUTO) 10.6 % (1.7-9.3); NEUTROPHILS # (AUTO) 2.9 K/uL (1.8-7.7); NEUTROPHILS % (AUTO) 69.8 % (40.0-70.0); PLATELET COUNT (AUTO) 147 K/uL (130-430); RED BLOOD CELL COUNT(AUTO) 2.97 MIL/uL (4.2-6.2); RED CELL DISTRIBUTION WIDTH 21.8 % (9.0-15.0); WHITE BLOOD COUNT (AUTO) 4.2 K/uL (4.8-10.8)
[2022-04-22 15:31] LABS: ANION GAP 4 (5-15); CALCIUM 7.9 mg/dL (8.4-11.0); CHLORIDE 100 mmol/L (98-107); CREATININE 4.35 mg/dL (0.55-1.30); GLUCOSE 104 mg/dL (70-99); POTASSIUM 3.7 mmol/L (3.5-5.1); SODIUM SERUM 134 mmol/L (136-145); UREA NITROGEN, BLOOD 18 mg/dL (8-21)
[2022-04-22 15:45] LABS: ALANINE AMINOTRANSFERASE 26 U/L (12-78); ALBUMIN 1.8 g/dL (3.4-4.8); ASPARTATE AMINOTRANSFERASE 46 U/L (10-37); TOTAL BILIRUBIN 1.1 mg/dL (0.0-1.0)
[2022-04-22] MEDS ORDERED: PIPERACILLIN/TAZO 3.375 GM in NS 50 ML IV ONE (16:00)
[2022-04-22 16:02] LABS: GFR AFRICAN AMERICAN 13 mL/min (>90)
[2022-04-22] MEDS ORDERED: PIPERACILLIN/TAZOBACTAM 3.375 GM/VIAL (ZOSYN) IV ONE (16:13)
[2022-04-22] MEDS ORDERED: NALOXONE HCL 0.4 MG/ML AMP (NARCAN) IVP PRN ×2 (19:30)
[2022-04-22] MEDS ORDERED: HYDROcodone/ACETAMIN 5-325 MG TAB (NORCO/ VICODIN) PO PRN (19:30)
[2022-04-22] MEDS ORDERED: ACETAMINOPHEN 325 MG TABLET PO PRN ×2 (19:30)
[2022-04-22] MEDS ORDERED: ALPRAZolam 0.25 MG TABLET PO PRN (19:30)
[2022-04-22] MEDS ORDERED: METOCLOPRAMIDE HCL 10 MG TABLET PO PRN (19:30)
[2022-04-22] MEDS ORDERED: HYDROcodone/ACETAMIN 10-325 MG TAB PO PRN (19:30)
[2022-04-22] MEDS ORDERED: NORMAL SALINE 5 ML DISP.SYRIN IVF SCH (22:00)
[2022-04-22] MEDS: NORMAL SALINE 5 ML DISP.SYRIN IVF SCH (22:00)
[2022-04-22] MEDS ORDERED: ERTAPENEM SODIUM 1 GM/VIAL VIAL ONE (22:51)
[2022-04-22] MEDS: ERTAPENEM SODIUM 0.5 GM in NS 50 ML IV SCH (23:40)
[2022-04-23 00:25] VITALS: BP_SYST 151
[2022-04-23] MEDS: ONDANSETRON HCL 4 MG/2 ML VIAL IVP PRN ×3 (01:17→16:43)
[2022-04-23] MEDS: NORMAL SALINE 5 ML DISP.SYRIN IVF SCH ×3 (06:40→22:00)
[2022-04-23 07:03] VITALS: BP_SYST 128
[2022-04-23 08:00] VITALS: BP_SYST 140
[2022-04-23 08:16] LABS: HEMATOCRIT 27.3 % (36-48); MEAN CORPUSCULAR HEMOGLOBIN 31 pg (27-31); MEAN CORPUSCULAR HGB CONC 33 % (32-36); MEAN CORPUSCULAR VOLUME 94 fL (79.0-98.0); PLATELET COUNT (AUTO) 206 K/uL (130-430); RED BLOOD CELL COUNT(AUTO) 2.91 MIL/uL (4.2-6.2); RED CELL DISTRIBUTION WIDTH 22.6 % (9.0-15.0); WHITE BLOOD COUNT (AUTO) 7.2 K/uL (4.8-10.8)
[2022-04-23 08:35] LABS: ALBUMIN 1.6 g/dL (3.4-4.8); C-REACTIVE PROTEIN QUANT 4.8 mg/dL (0-0.5); CALCIUM 8.3 mg/dL (8.4-11.0); CREATININE 4.89 mg/dL (0.55-1.30); PHOSPHORUS 3.9 mg/dL (2.7-4.5); POTASSIUM 4.4 mmol/L (3.5-5.1); TOTAL BILIRUBIN 1.8 mg/dL (0.0-1.0)
[2022-04-23] MEDS ORDERED: SEVELAMER HCL Non-Formulary 800 MG TABLET PO SCH (09:00)
[2022-04-23] MEDS: SEVELAMER CARBONATE 800 MG TABLET PO SCH ×3 (09:40→18:25)
[2022-04-23] MEDS: FLUCONAZOLE 200 MG TABLET (DIFLUCAN) PO SCH (09:41)
[2022-04-23] MEDS: NEPHROVITE, (FOLIC ACID/VITAMIN B COMP W-C 1 TAB) PO SCH (09:41)
[2022-04-23] MEDS: FOLIC ACID 1 MG TABLET PO SCH (09:41)
[2022-04-23] MEDS ORDERED: FAMO20TA8 PO (10:40)
[2022-04-23] MEDS ORDERED: SUCR1TAB78 PO (10:40)
[2022-04-23 10:58] LABS: ERYTHROCYTE SEDIMENTATION RATE 21 MM/HR (0-20)
[2022-04-23 11:53] VITALS: BP_SYST 126
[2022-04-23 13:04] LABS: BASOPHILS % (MANUAL) 0 % (0-2); EOSINOPHILS % (MANUAL) 0 % (0-7); LYMPHOCYTES % (MANUAL) 5 % (20-46); MONOCYTES % (MANUAL) 3 % (0-11)
[2022-04-23 16:37] VITALS: BP_SYST 146
[2022-04-23] MEDS: SUCRALFATE 1 GM TABLET PO SCH ×2 (16:43→21:17)
[2022-04-23] MEDS: ERTAPENEM SODIUM 0.5 GM in NS 50 ML IV SCH (18:25)
[2022-04-23 21:04] VITALS: BP_SYST 123
[2022-04-23] MEDS: FAMOTIDINE 20 MG TABLET PO SCH (21:17)
[2022-04-23] MEDS: METHYLPREDNISOLONE SOD SUCC 40 MG/ML VIAL IVP SCH (21:17)
[2022-04-24 01:11] VITALS: BP_SYST 114
[2022-04-24] MEDS: NORMAL SALINE 5 ML DISP.SYRIN IVF SCH ×3 (05:47→22:58)
[2022-04-24 06:23] LABS: BASOPHILS % (AUTO) 0.2 % (0.0-2.0); EOSINOPHILS % (AUTO) 0.1 % (0.0-4.0); HEMATOCRIT 25.2 % (36-48); LYMPHOCYTES # (AUTO) 0.2 K/uL (1.0-5.5); LYMPHOCYTES % (AUTO) 2.6 % (20.5-51.5); MEAN CORPUSCULAR HEMOGLOBIN 30 pg (27-31); MEAN CORPUSCULAR HGB CONC 32 % (32-36); MEAN CORPUSCULAR VOLUME 94 fL (79.0-98.0); MONOCYTES # (AUTO) 0.1 K/uL (0.0-1.0); MONOCYTES % (AUTO) 1.8 % (1.7-9.3); NEUTROPHILS # (AUTO) 6.4 K/uL (1.8-7.7); PLATELET COUNT (AUTO) 117 K/uL (130-430); RED BLOOD CELL COUNT(AUTO) 2.66 MIL/uL (4.2-6.2); RED CELL DISTRIBUTION WIDTH 22.5 % (9.0-15.0); WHITE BLOOD COUNT (AUTO) 6.8 K/uL (4.8-10.8)
[2022-04-24 07:02] LABS: NEUTROPHILS % (AUTO) 95.3 % (40.0-70.0)
[2022-04-24 07:06] LABS: C-REACTIVE PROTEIN QUANT 10.9 mg/dL (0-0.5); CALCIUM 7.8 mg/dL (8.4-11.0); CREATININE 4.65 mg/dL (0.55-1.30); PHOSPHORUS 4.7 mg/dL (2.7-4.5); POTASSIUM 4.7 mmol/L (3.5-5.1)
[2022-04-24] MEDS: SEVELAMER CARBONATE 800 MG TABLET PO SCH ×3 (08:00→18:40)
[2022-04-24 08:24] VITALS: BP_SYST 150
[2022-04-24] MEDS: FOLIC ACID 1 MG TABLET PO SCH (08:57)
[2022-04-24] MEDS: FLUCONAZOLE 200 MG TABLET (DIFLUCAN) PO SCH (08:57)
[2022-04-24] MEDS: SUCRALFATE 1 GM TABLET PO SCH ×4 (08:57→20:52)
[2022-04-24] MEDS: NEPHROVITE, (FOLIC ACID/VITAMIN B COMP W-C 1 TAB) PO SCH (08:58)
[2022-04-24] MEDS: METHYLPREDNISOLONE SOD SUCC 40 MG/ML VIAL IVP SCH ×2 (09:05→20:51)
[2022-04-24] MEDS: ONDANSETRON HCL 4 MG/2 ML VIAL IVP PRN (09:50)
[2022-04-24 11:14] VITALS: BP_SYST 152
[2022-04-24 11:31] LABS: ERYTHROCYTE SEDIMENTATION RATE 18 MM/HR (0-20)
[2022-04-24] MEDS ORDERED: PHENYLEPHRINE HCL 10 MG/ML VIAL (NEOSYNEPHRINE) ONE (12:29)
[2022-04-24] MEDS ORDERED: NS 1000 ML IV.SOLN IV ONE (12:29)
[2022-04-24] MEDS ORDERED: ePHEDrine sulfate 50 MG/ML VIAL ONE (12:29)
[2022-04-24] MEDS ORDERED: ETOMIDATE 20 MG/ 10 ML VIAL (AMIDATE) ONE (12:29)
[2022-04-24] MEDS ORDERED: HEPARIN SODIUM, PORCINE 10,000 UNITS/ 10 ML VIAL ONE (12:29)
[2022-04-24] MEDS ORDERED: SEVOFLURANE 15 MIN GAS INH ONE (12:29)
[2022-04-24] MEDS ORDERED: SUCCINYLCHOLINE CHLORIDE 20 MG/ML(QUELICIN) ONE (12:29)
[2022-04-24] MEDS ORDERED: LIDOCAINE 1% 10 MG/ML, 20 ML MDV ONE (12:29)
[2022-04-24] MEDS ORDERED: ONDANSETRON HCL 4 MG/2 ML VIAL ONE (12:29)
[2022-04-24] MEDS ORDERED: METOCLOPRAMIDE HCL 10 MG/2 ML VIAL ONE (12:29)
[2022-04-24] MEDS ORDERED: DEXAMETHASONE SOD PHOSPHATE 4 MG/ML VIAL ONE (12:29)
[2022-04-24] MEDS ORDERED: MORPHINE 4 MG INJ. 4 MG/ML VIAL IVP PRN ×3 (12:30)
[2022-04-24] MEDS ORDERED: ONDANSETRON HCL 4 MG/2 ML VIAL IVP PRN (12:30)
[2022-04-24 14:05] VITALS: BP_SYST 101
[2022-04-24 16:26] VITALS: BP_SYST 110
[2022-04-24] MEDS: INSULIN REGULAR, HUMAN 100 UNITS/ML, 10 ML VIAL (humuLIN R) SUBCUT PRN ×2 (17:00→20:57)
[2022-04-24] MEDS: ERTAPENEM SODIUM 0.5 GM in NS 50 ML IV SCH (18:41)
[2022-04-24 20:00] VITALS: BP_SYST 99
[2022-04-24] MEDS: DOCUSATE SODIUM 100 MG CAPSULE PO SCH (20:51)
[2022-04-24] MEDS: DAPTOmycin 480 MG in NS 50 ML IV SCH (20:51)
[2022-04-24] MEDS: FAMOTIDINE 20 MG TABLET PO SCH (20:52)
[2022-04-25 00:34] VITALS: BP_SYST 137
[2022-04-25] MEDS: NORMAL SALINE 5 ML DISP.SYRIN IVF SCH ×3 (06:21→21:11)
[2022-04-25] MEDS: INSULIN REGULAR, HUMAN 100 UNITS/ML, 10 ML VIAL (humuLIN R) SUBCUT PRN ×2 (06:28→17:19)
[2022-04-25 07:43] LABS: BASOPHILS % (AUTO) 0.4 % (0.0-2.0); EOSINOPHILS % (AUTO) 0.1 % (0.0-4.0); LYMPHOCYTES # (AUTO) 0.1 K/uL (1.0-5.5); LYMPHOCYTES % (AUTO) 1.6 % (20.5-51.5); MEAN CORPUSCULAR HEMOGLOBIN 30 pg (27-31); MEAN CORPUSCULAR HGB CONC 32 % (32-36); MEAN CORPUSCULAR VOLUME 94 fL (79.0-98.0); MONOCYTES # (AUTO) 0.2 K/uL (0.0-1.0); MONOCYTES % (AUTO) 2.5 % (1.7-9.3); NEUTROPHILS # (AUTO) 5.8 K/uL (1.8-7.7); PLATELET COUNT (AUTO) 112 K/uL (130-430); RED BLOOD CELL COUNT(AUTO) 2.32 MIL/uL (4.2-6.2); RED CELL DISTRIBUTION WIDTH 22.9 % (9.0-15.0); WHITE BLOOD COUNT (AUTO) 6.1 K/uL (4.8-10.8)
[2022-04-25 07:50] LABS: HEMATOCRIT 21.8 % (36-48)
[2022-04-25 08:00] VITALS: BP_SYST 152
[2022-04-25 08:01] LABS: C-REACTIVE PROTEIN QUANT 8.7 mg/dL (0-0.5); CALCIUM 8.1 mg/dL (8.4-11.0); CREATININE 5.72 mg/dL (0.55-1.30); PHOSPHORUS 5.5 mg/dL (2.7-4.5); POTASSIUM 4.5 mmol/L (3.5-5.1)
[2022-04-25] MEDS: METHYLPREDNISOLONE SOD SUCC 40 MG/ML VIAL IVP SCH ×2 (08:24→20:40)
[2022-04-25] MEDS: SEVELAMER CARBONATE 800 MG TABLET PO SCH ×3 (08:24→17:18)
[2022-04-25] MEDS: SUCRALFATE 1 GM TABLET PO SCH ×4 (08:25→20:40)
[2022-04-25] MEDS: FLUCONAZOLE 200 MG TABLET (DIFLUCAN) PO SCH (08:25)
[2022-04-25] MEDS: NEPHROVITE, (FOLIC ACID/VITAMIN B COMP W-C 1 TAB) PO SCH (08:34)
[2022-04-25] MEDS: FOLIC ACID 1 MG TABLET PO SCH (08:34)
[2022-04-25] MEDS ORDERED: ERGOCALCIFEROL 8000 UNITS/ML ORAL SOLUTION, 60 ML BOTTLE PO SCH (09:00)
[2022-04-25 09:57] LABS: ERYTHROCYTE SEDIMENTATION RATE 16 MM/HR (0-20)
[2022-04-25 10:38] LABS: NEUTROPHILS % (AUTO) 95.4 % (40.0-70.0)
[2022-04-25 12:39] VITALS: BP_SYST 149
[2022-04-25 16:00] VITALS: BP_SYST 149
[2022-04-25] MEDS: ERTAPENEM SODIUM 0.5 GM in NS 50 ML IV SCH (18:46)
[2022-04-25 20:35] VITALS: BP_SYST 134
[2022-04-25] MEDS: FAMOTIDINE 20 MG TABLET PO SCH (20:40)
[2022-04-25] MEDS: DOCUSATE SODIUM 100 MG CAPSULE PO SCH (20:40)
[2022-04-26 00:14] VITALS: BP_SYST 140
[2022-04-26] MEDS: NORMAL SALINE 5 ML DISP.SYRIN IVF SCH ×3 (06:40→21:19)
[2022-04-26 06:41] LABS: BASOPHILS % (AUTO) 0.5 % (0.0-2.0); EOSINOPHILS % (AUTO) 0.1 % (0.0-4.0); LYMPHOCYTES # (AUTO) 0.2 K/uL (1.0-5.5); LYMPHOCYTES % (AUTO) 4.4 % (20.5-51.5); MEAN CORPUSCULAR HEMOGLOBIN 31 pg (27-31); MEAN CORPUSCULAR HGB CONC 33 % (32-36); MEAN CORPUSCULAR VOLUME 93 fL (79.0-98.0); MONOCYTES # (AUTO) 0.1 K/uL (0.0-1.0); MONOCYTES % (AUTO) 2.7 % (1.7-9.3); NEUTROPHILS # (AUTO) 3.9 K/uL (1.8-7.7); NEUTROPHILS % (AUTO) 92.3 % (40.0-70.0); PLATELET COUNT (AUTO) 98 K/uL (130-430); RED BLOOD CELL COUNT(AUTO) 2.24 MIL/uL (4.2-6.2); RED CELL DISTRIBUTION WIDTH 22.7 % (9.0-15.0); WHITE BLOOD COUNT (AUTO) 4.2 K/uL (4.8-10.8)
[2022-04-26] MEDS: INSULIN REGULAR, HUMAN 100 UNITS/ML, 10 ML VIAL (humuLIN R) SUBCUT PRN ×3 (06:43→16:17)
[2022-04-26 07:05] LABS: ALBUMIN 1.4 g/dL (3.4-4.8); C-REACTIVE PROTEIN QUANT 5.6 mg/dL (0-0.5); CALCIUM 8.7 mg/dL (8.4-11.0); CREATININE 6.46 mg/dL (0.55-1.30); PHOSPHORUS 6.5 mg/dL (2.7-4.5); POTASSIUM 5.3 mmol/L (3.5-5.1); TOTAL BILIRUBIN 1.3 mg/dL (0.0-1.0)
[2022-04-26 07:56] VITALS: BP_SYST 157
[2022-04-26 08:12] LABS: HEMATOCRIT 20.9 % (36-48); HEMOGLOBIN 6.9 g/dL (12.0-16.0)
[2022-04-26] MEDS: FOLIC ACID 1 MG TABLET PO SCH (08:53)
[2022-04-26] MEDS: NEPHROVITE, (FOLIC ACID/VITAMIN B COMP W-C 1 TAB) PO SCH (08:53)
[2022-04-26] MEDS: SEVELAMER CARBONATE 800 MG TABLET PO SCH ×3 (08:53→18:24)
[2022-04-26] MEDS: FLUCONAZOLE 200 MG TABLET (DIFLUCAN) PO SCH (08:53)
[2022-04-26] MEDS: SUCRALFATE 1 GM TABLET PO SCH ×4 (08:53→21:12)
[2022-04-26] MEDS: METHYLPREDNISOLONE SOD SUCC 40 MG/ML VIAL IVP SCH ×2 (08:54→21:14)
[2022-04-26] MEDS: DAPTOmycin 480 MG in NS 50 ML IV SCH (08:55)
[2022-04-26 10:14] LABS: ERYTHROCYTE SEDIMENTATION RATE 18 MM/HR (0-20)
[2022-04-26 11:25] VITALS: BP_SYST 142
[2022-04-26 13:18] LABS: INR 1.5 (0.8-1.2); PROTHROMBIN TIME 15.2 SECS (9.5-12.5)
[2022-04-26 13:22] LABS: TOTAL IRON BIND. CAPACITY 47 ug/dL (250-450)
[2022-04-26] MEDS ORDERED: HEPARIN SODIUM, PORCINE 10,000 UNITS/ 10 ML VIAL MC ONE (14:15)
[2022-04-26] MEDS ORDERED: HEPARIN SODIUM,PORCINE 5,000 UNITS/ML VIAL MC ONE (14:45)
[2022-04-26 16:06] VITALS: BP_SYST 137
[2022-04-26] MEDS: EPOETIN ALFA-EPBX 4,000 UNITS/ML VIAL SUBCUT SCH (16:20)
[2022-04-26] MEDS: ERTAPENEM SODIUM 0.5 GM in NS 50 ML IV SCH (18:25)
[2022-04-26 20:00] VITALS: BP_SYST 138
[2022-04-26] MEDS: FAMOTIDINE 20 MG TABLET PO SCH (21:11)
[2022-04-26] MEDS: DOCUSATE SODIUM 100 MG CAPSULE PO SCH (21:11)
[2022-04-27] VITALS (8 sets, daily range): BP systolic 136–173
[2022-04-27] MEDS: NORMAL SALINE 5 ML DISP.SYRIN IVF SCH ×3 (06:26→21:42)
[2022-04-27 06:44] LABS: BASOPHILS % (AUTO) 0.6 % (0.0-2.0); EOSINOPHILS % (AUTO) 0.1 % (0.0-4.0); HEMATOCRIT 27.3 % (36-48); LYMPHOCYTES # (AUTO) 0.2 K/uL (1.0-5.5); LYMPHOCYTES % (AUTO) 6.8 % (20.5-51.5); MEAN CORPUSCULAR HEMOGLOBIN 30 pg (27-31); MEAN CORPUSCULAR HGB CONC 33 % (32-36); MEAN CORPUSCULAR VOLUME 91 fL (79.0-98.0); MONOCYTES # (AUTO) 0.2 K/uL (0.0-1.0); MONOCYTES % (AUTO) 6.7 % (1.7-9.3); NEUTROPHILS # (AUTO) 2.3 K/uL (1.8-7.7); NEUTROPHILS % (AUTO) 85.8 % (40.0-70.0); PLATELET COUNT (AUTO) 93 K/uL (130-430); RED CELL DISTRIBUTION WIDTH 19.5 % (9.0-15.0); WHITE BLOOD COUNT (AUTO) 2.7 K/uL (4.8-10.8)
[2022-04-27 07:21] LABS: C-REACTIVE PROTEIN QUANT 3.3 mg/dL (0-0.5); CALCIUM 8.2 mg/dL (8.4-11.0); CREATININE 4.36 mg/dL (0.55-1.30); PHOSPHORUS 4.7 mg/dL (2.7-4.5); POTASSIUM 4.3 mmol/L (3.5-5.1)
[2022-04-27 08:18] LABS: ALBUMIN 1.8 g/dL (3.4-4.8); BILIRUBIN,DIRECT 0.9 mg/dL (0.0-0.3); TOTAL BILIRUBIN 1.5 mg/dL (0.0-1.0)
[2022-04-27] MEDS: NEPHROVITE, (FOLIC ACID/VITAMIN B COMP W-C 1 TAB) PO SCH (09:29)
[2022-04-27] MEDS: METHYLPREDNISOLONE SOD SUCC 40 MG/ML VIAL IVP SCH ×2 (09:29→21:33)
[2022-04-27] MEDS: SUCRALFATE 1 GM TABLET PO SCH ×4 (09:29→21:33)
[2022-04-27] MEDS: FOLIC ACID 1 MG TABLET PO SCH (09:29)
[2022-04-27] MEDS: SEVELAMER CARBONATE 800 MG TABLET PO SCH ×3 (09:29→18:13)
[2022-04-27] MEDS: FLUCONAZOLE 200 MG TABLET (DIFLUCAN) PO SCH (09:29)
[2022-04-27 09:37] LABS: ERYTHROCYTE SEDIMENTATION RATE 9 MM/HR (0-20)
[2022-04-27] MEDS: INSULIN REGULAR, HUMAN 100 UNITS/ML, 10 ML VIAL (humuLIN R) SUBCUT PRN ×2 (12:52→21:39)
[2022-04-27] MEDS: ERTAPENEM SODIUM 0.5 GM in NS 50 ML IV SCH (18:08)
[2022-04-27] MEDS: FAMOTIDINE 20 MG TABLET PO SCH (21:32)
[2022-04-27] MEDS: DOCUSATE SODIUM 100 MG CAPSULE PO SCH (21:33)
[2022-04-28 00:15] VITALS: BP_SYST 150
[2022-04-28] MEDS: NORMAL SALINE 5 ML DISP.SYRIN IVF SCH ×3 (06:30→22:03)
[2022-04-28] MEDS: INSULIN REGULAR, HUMAN 100 UNITS/ML, 10 ML VIAL (humuLIN R) SUBCUT PRN ×2 (06:41→17:35)
[2022-04-28 07:05] LABS: BASOPHILS # (AUTO) 0.1 K/uL (0.0-0.2); EOSINOPHILS % (AUTO) 0.2 % (0.0-4.0); HEMATOCRIT 26.4 % (36-48); HEMOGLOBIN 8.8 g/dL (12.0-16.0); LYMPHOCYTES # (AUTO) 0.2 K/uL (1.0-5.5); LYMPHOCYTES % (AUTO) 10.2 % (20.5-51.5); MEAN CORPUSCULAR HEMOGLOBIN 30 pg (27-31); MEAN CORPUSCULAR HGB CONC 33 % (32-36); MEAN CORPUSCULAR VOLUME 91 fL (79.0-98.0); MONOCYTES # (AUTO) 0.1 K/uL (0.0-1.0); MONOCYTES % (AUTO) 5.5 % (1.7-9.3); NEUTROPHILS # (AUTO) 1.9 K/uL (1.8-7.7); NEUTROPHILS % (AUTO) 81.1 % (40.0-70.0); PLATELET COUNT (AUTO) 85 K/uL (130-430); RED BLOOD CELL COUNT(AUTO) 2.89 MIL/uL (4.2-6.2); RED CELL DISTRIBUTION WIDTH 19.6 % (9.0-15.0); WHITE BLOOD COUNT (AUTO) 2.3 K/uL (4.8-10.8)
[2022-04-28 07:59] LABS: ALBUMIN 1.8 g/dL (3.4-4.8); C-REACTIVE PROTEIN QUANT 2.1 mg/dL (0-0.5); CALCIUM 7.9 mg/dL (8.4-11.0); CREATININE 5.55 mg/dL (0.55-1.30); PHOSPHORUS 4.6 mg/dL (2.7-4.5); POTASSIUM 4.6 mmol/L (3.5-5.1)
[2022-04-28 08:00] VITALS: BP_SYST 148
[2022-04-28 08:20] LABS: FERRITIN 1295 ng/mL (15-150)
[2022-04-28] MEDS: FLUCONAZOLE 200 MG TABLET (DIFLUCAN) PO SCH (08:32)
[2022-04-28] MEDS: NEPHROVITE, (FOLIC ACID/VITAMIN B COMP W-C 1 TAB) PO SCH (08:33)
[2022-04-28] MEDS: FOLIC ACID 1 MG TABLET PO SCH (08:33)
[2022-04-28] MEDS: SEVELAMER CARBONATE 800 MG TABLET PO SCH ×3 (08:33→17:30)
[2022-04-28] MEDS: SUCRALFATE 1 GM TABLET PO SCH ×4 (08:33→22:02)
[2022-04-28] MEDS: METHYLPREDNISOLONE SOD SUCC 40 MG/ML VIAL IVP SCH ×2 (08:33→22:03)
[2022-04-28] MEDS: DAPTOmycin 480 MG in NS 50 ML IV SCH (09:00)
[2022-04-28 09:30] LABS: ERYTHROCYTE SEDIMENTATION RATE 8 MM/HR (0-20)
[2022-04-28] MEDS ORDERED: HEPARIN SODIUM, PORCINE 10,000 UNITS/ 10 ML VIAL MC ONE (11:00)
[2022-04-28 11:25] VITALS: BP_SYST 144
[2022-04-28 15:25] VITALS: BP_SYST 135
[2022-04-28] MEDS: EPOETIN ALFA-EPBX 4,000 UNITS/ML VIAL SUBCUT SCH (17:31)
[2022-04-28] MEDS: ERTAPENEM SODIUM 0.5 GM in NS 50 ML IV SCH (18:20)
[2022-04-28 20:07] VITALS: BP_SYST 164
[2022-04-28] MEDS: DOCUSATE SODIUM 100 MG CAPSULE PO SCH (22:02)
[2022-04-28] MEDS: FAMOTIDINE 20 MG TABLET PO SCH (22:03)
[2022-04-28 23:33] VITALS: BP_SYST 154
[2022-04-29 06:46] LABS: BASOPHILS % (AUTO) 1.3 % (0.0-2.0); EOSINOPHILS % (AUTO) 0.1 % (0.0-4.0); HEMATOCRIT 27.4 % (36-48); LYMPHOCYTES # (AUTO) 0.3 K/uL (1.0-5.5); LYMPHOCYTES % (AUTO) 10.5 % (20.5-51.5); MEAN CORPUSCULAR HEMOGLOBIN 30 pg (27-31); MEAN CORPUSCULAR HGB CONC 33 % (32-36); MEAN CORPUSCULAR VOLUME 92 fL (79.0-98.0); MONOCYTES # (AUTO) 0.2 K/uL (0.0-1.0); MONOCYTES % (AUTO) 6.1 % (1.7-9.3); PLATELET COUNT (AUTO) 76 K/uL (130-430); RED BLOOD CELL COUNT(AUTO) 2.98 MIL/uL (4.2-6.2); RED CELL DISTRIBUTION WIDTH 19.6 % (9.0-15.0); WHITE BLOOD COUNT (AUTO) 2.4 K/uL (4.8-10.8)
[2022-04-29] MEDS: NORMAL SALINE 5 ML DISP.SYRIN IVF SCH ×3 (06:46→23:45)
[2022-04-29 07:47] LABS: ALBUMIN 1.8 g/dL (3.4-4.8); C-REACTIVE PROTEIN QUANT 0.9 mg/dL (0-0.5); CALCIUM 8.2 mg/dL (8.4-11.0); CREATININE 4.33 mg/dL (0.55-1.30); PHOSPHORUS 3.6 mg/dL (2.7-4.5); POTASSIUM 4.6 mmol/L (3.5-5.1)
[2022-04-29 08:00] VITALS: BP_SYST 154
[2022-04-29] MEDS: FLUCONAZOLE 200 MG TABLET (DIFLUCAN) PO SCH (08:43)
[2022-04-29] MEDS: NEPHROVITE, (FOLIC ACID/VITAMIN B COMP W-C 1 TAB) PO SCH (08:43)
[2022-04-29] MEDS: FOLIC ACID 1 MG TABLET PO SCH (08:43)
[2022-04-29] MEDS: METHYLPREDNISOLONE SOD SUCC 40 MG/ML VIAL IVP SCH ×2 (08:43→23:44)
[2022-04-29] MEDS: SUCRALFATE 1 GM TABLET PO SCH ×4 (08:43→23:45)
[2022-04-29] MEDS: SEVELAMER CARBONATE 800 MG TABLET PO SCH ×3 (08:44→18:02)
[2022-04-29 11:36] VITALS: BP_SYST 177
[2022-04-29 12:01] LABS: ERYTHROCYTE SEDIMENTATION RATE 7 MM/HR (0-20)
[2022-04-29] MEDS: INSULIN REGULAR, HUMAN 100 UNITS/ML, 10 ML VIAL (humuLIN R) SUBCUT PRN ×2 (12:14→18:08)
[2022-04-29 15:28] VITALS: BP_SYST 155
[2022-04-29] MEDS: ERTAPENEM SODIUM 0.5 GM in NS 50 ML IV SCH (18:03)
[2022-04-29 20:10] VITALS: BP_SYST 172
[2022-04-29] MEDS: FAMOTIDINE 20 MG TABLET PO SCH (23:44)
[2022-04-29] MEDS: DOCUSATE SODIUM 100 MG CAPSULE PO SCH (23:45)
[2022-04-30 00:55] VITALS: BP_SYST 164
[2022-04-30] MEDS: NORMAL SALINE 5 ML DISP.SYRIN IVF SCH ×2 (06:50→14:08)
[2022-04-30] MEDS: INSULIN REGULAR, HUMAN 100 UNITS/ML, 10 ML VIAL (humuLIN R) SUBCUT PRN ×2 (06:56→17:57)
[2022-04-30 07:28] LABS: BASOPHILS % (AUTO) 0.9 % (0.0-2.0); EOSINOPHILS % (AUTO) 0.3 % (0.0-4.0); HEMATOCRIT 27.3 % (36-48); LYMPHOCYTES # (AUTO) 0.2 K/uL (1.0-5.5); LYMPHOCYTES % (AUTO) 7.6 % (20.5-51.5); MEAN CORPUSCULAR HEMOGLOBIN 30 pg (27-31); MEAN CORPUSCULAR HGB CONC 33 % (32-36); MEAN CORPUSCULAR VOLUME 92 fL (79.0-98.0); MONOCYTES # (AUTO) 0.1 K/uL (0.0-1.0); MONOCYTES % (AUTO) 3.5 % (1.7-9.3); NEUTROPHILS # (AUTO) 2.6 K/uL (1.8-7.7); NEUTROPHILS % (AUTO) 87.7 % (40.0-70.0); PLATELET COUNT (AUTO) 80 K/uL (130-430); RED BLOOD CELL COUNT(AUTO) 2.98 MIL/uL (4.2-6.2); RED CELL DISTRIBUTION WIDTH 19.6 % (9.0-15.0); WHITE BLOOD COUNT (AUTO) 2.9 K/uL (4.8-10.8)
[2022-04-30 07:57] LABS: ALBUMIN 1.7 g/dL (3.4-4.8); C-REACTIVE PROTEIN QUANT 0.5 mg/dL (0-0.5); CALCIUM 7.6 mg/dL (8.4-11.0); CREATININE 5.25 mg/dL (0.55-1.30); PHOSPHORUS 3.2 mg/dL (2.7-4.5); POTASSIUM 4.9 mmol/L (3.5-5.1)
[2022-04-30] MEDS: NEPHROVITE, (FOLIC ACID/VITAMIN B COMP W-C 1 TAB) PO SCH (09:04)
[2022-04-30] MEDS: SEVELAMER CARBONATE 800 MG TABLET PO SCH ×3 (09:04→17:47)
[2022-04-30] MEDS: SUCRALFATE 1 GM TABLET PO SCH ×3 (09:04→17:48)
[2022-04-30] MEDS: FOLIC ACID 1 MG TABLET PO SCH (09:04)
[2022-04-30] MEDS: METHYLPREDNISOLONE SOD SUCC 40 MG/ML VIAL IVP SCH (09:04)
[2022-04-30] MEDS ORDERED: SIMETHICONE 80 MG TAB.CHEW PO PRN (09:30)
[2022-04-30] MEDS ORDERED: DOCUSATE SODIUM 100 MG CAPSULE PO ONE (10:00)
[2022-04-30] MEDS ORDERED: hydrALAZINE HCL 20 MG/ML VIAL IVP PRN (10:15)
[2022-04-30] MEDS: DAPTOmycin 480 MG in NS 50 ML IV SCH (10:28)
[2022-04-30 11:23] LABS: ERYTHROCYTE SEDIMENTATION RATE 5 MM/HR (0-20)
[2022-04-30 11:29] VITALS: BP_SYST 173
[2022-04-30] MEDS ORDERED: HEPARIN SODIUM,PORCINE 5,000 UNITS/ML VIAL MC ONE (13:00)
[2022-04-30 15:51] VITALS: BP_SYST 141
[2022-04-30] MEDS ORDERED: SIME80TA15 PO (16:17)
[2022-04-30] MEDS ORDERED: PRED20TA PO (16:17)
[2022-04-30] MEDS ORDERED: [UNRECOGNIZED DRUG - CODE] IV (16:17)
[2022-04-30] MEDS: EPOETIN ALFA-EPBX 4,000 UNITS/ML VIAL SUBCUT SCH (17:49)
[2022-04-30] MEDS: ERTAPENEM SODIUM 0.5 GM in NS 50 ML IV SCH (17:50)
[2022-04-30 18:19] VITALS: BP_SYST 141
[2022-04-30] MEDS ORDERED: DOCUSATE SODIUM 100 MG CAPSULE PO SCH (21:00)
== END 2022-04-30 20:00 | disposition home health service (06) | DRG 871 ==
LOC: SED 13:42 → SMU 17:01
PROVIDERS: ADMIT Preventive Medicine Preventive Medicine/Occupational Environmental Medicine; ATTEND Preventive Medicine Preventive Medicine/Occupational Environmental Medicine
PROC: 5A1D70Z Performance of Urinary Filtration, Intermittent, Less than 6 Hours Per Day (ICD-10-PCS; 2022-04-23)
PROC: 02HV33Z Insertion of Infusion Device into Superior Vena Cava, Percutaneous Approach (ICD-10-PCS; 2022-04-24)
PROC: B518ZZA Fluoroscopy of Superior Vena Cava, Guidance (ICD-10-PCS; 2022-04-24)
PROC: B548ZZA Ultrasonography of Superior Vena Cava, Guidance (ICD-10-PCS; 2022-04-24)
PROC: 02PYX3Z Removal of Infusion Device from Great Vessel, External Approach (ICD-10-PCS; principal; 2022-04-24 11:01)
PROC: 30233N1 Transfusion of Nonautologous Red Blood Cells into Peripheral Vein, Percutaneous Approach (ICD-10-PCS; 2022-04-26)
PROC: 5A1D70Z Performance of Urinary Filtration, Intermittent, Less than 6 Hours Per Day (ICD-10-PCS; 2022-04-26)
PROC: 5A1D70Z Performance of Urinary Filtration, Intermittent, Less than 6 Hours Per Day (ICD-10-PCS; 2022-04-28)
PROC: 5A1D80Z Performance of Urinary Filtration, Prolonged Intermittent, 6-18 hours Per Day (ICD-10-PCS; 2022-04-30)
DX: A41.9 Sepsis, unspecified organism (principal); N18.6 End stage renal disease; E43 Unspecified severe protein-calorie malnutrition; N39.0 Urinary tract infection, site not specified; E87.1 Hypo-osmolality and hyponatremia; Z16.12 Extended spectrum beta lactamase (ESBL) resistance; D61.818 Other pancytopenia; I12.0 Hypertensive chronic kidney disease with stage 5 chronic kidney disease or end stage renal disease; L51.1 Stevens-Johnson syndrome; E66.01 Morbid (severe) obesity due to excess calories; D63.1 Anemia in chronic kidney disease; E83.41 Hypermagnesemia; E83.42 Hypomagnesemia; E83.52 Hypercalcemia; E83.51 Hypocalcemia; E11.65 Type 2 diabetes mellitus with hyperglycemia; E88.09 Other disorders of plasma-protein metabolism, not elsewhere classified; E87.5 Hyperkalemia; E11.51 Type 2 diabetes mellitus with diabetic peripheral angiopathy without gangrene; E83.39 Other disorders of phosphorus metabolism; Z20.822 Contact with and (suspected) exposure to COVID-19; B95.7 Other staphylococcus as the cause of diseases classified elsewhere; E11.22 Type 2 diabetes mellitus with diabetic chronic kidney disease; K71.9 Toxic liver disease, unspecified; L98.499 Non-pressure chronic ulcer of skin of other sites with unspecified severity; B96.20 Unspecified Escherichia coli [E. coli] as the cause of diseases classified elsewhere; E11.622 Type 2 diabetes mellitus with other skin ulcer; J45.909 Unspecified asthma, uncomplicated; Z88.1 Allergy status to other antibiotic agents; Z88.2 Allergy status to sulfonamides; Z79.899 Other long term (current) drug therapy; Z90.710 Acquired absence of both cervix and uterus; Z90.49 Acquired absence of other specified parts of digestive tract; Z99.2 Dependence on renal dialysis; Z87.440 Personal history of urinary (tract) infections; Z87.11 Personal history of peptic ulcer disease; Z68.36 Body mass index [BMI] 36.0-36.9, adult
CPT/HCPCS: 36415; 71045; 76000; 76700-TC; 80048; 80053; 80074; 80076; 82390; 82607; 82728; 82746; 82948; 82962; 82977; 83516; 83540; 83550; 83605; 83735; 83880; 84100; 84484; 85007; 85025; 85027; 85044; 85610-TC; 85651-TC; 86038; 86140; 86886; 86900; 86901; 86920; 87040; 87081; 87186-TC; 90935; 90937; 93005; 96365; 99285; C1750; C1769; J0330; J0878; J1030; J1100; J1335; J1644; J1815; J2001; J2370; J2405; J2543; J2765; J3490; J7030; J8597; P9021; Q5106